=== PATIENT | male | born 1950 | race Caucasian/White ===

== ENCOUNTER 2016-07-15 10:50 | Outpatient (CLI) | payer OTHER | END 2016-07-15 10:51 | disposition home or self-care (01) | DX: E78.5 Hyperlipidemia, unspecified (principal); E11.9 Type 2 diabetes mellitus without complications; R97.20 Elevated prostate specific antigen [PSA]; I10 Essential (primary) hypertension; L30.9 Dermatitis, unspecified; Z79.899 Other long term (current) drug therapy; R94.5 Abnormal results of liver function studies ==

== ENCOUNTER 2016-07-25 07:25 | Outpatient (CLI) | payer OTHER | END 2016-07-25 07:26 | disposition home or self-care (01) | DX: K76.0 Fatty (change of) liver, not elsewhere classified (principal) ==

== ENCOUNTER 2016-08-05 14:53 | Outpatient (CLI) | payer OTHER | END 2016-08-05 14:54 | disposition home or self-care (01) | DX: R74.8 Abnormal levels of other serum enzymes (principal) ==

== ENCOUNTER 2016-08-18 09:56 | Emergency (ER) | payer OTHER ==
[2016-08-18] MEDS ORDERED: DEXAMETHASONE 10 MG/ML VIAL PO STA (10:34)
[2016-08-18] MEDS ORDERED: CHERRY SYRUP 10 ML UDC PO ONE (10:36)
[2016-08-18] MEDS ORDERED: DEXAMETHASONE 10 MG/ML VIAL ONE (10:36)
== END 2016-08-18 12:52 | disposition home or self-care (01) ==
DX: S83.8X1A Sprain of other specified parts of right knee, initial encounter (principal); X50.0XXA Overexertion from strenuous movement or load, initial encounter; Y92.019 Unspecified place in single-family (private) house as the place of occurrence of the external cause; M17.11 Unilateral primary osteoarthritis, right knee; M25.461 Effusion, right knee; I10 Essential (primary) hypertension; E78.00 Pure hypercholesterolemia, unspecified; J43.9 Emphysema, unspecified; K21.9 Gastro-esophageal reflux disease without esophagitis
CPT/HCPCS: 73564; 99283; A9270

== ENCOUNTER 2016-10-02 20:07 | Outpatient (CLI) | payer OTHER ==
[2016-10-02 19:51] LABS: BILIRUBIN,DIRECT 0.1 mg/dL (0.1-0.5); TOTAL PROTEIN 7.7 g/dL (6.7-8.2)
== END 2016-10-02 20:08 | disposition home or self-care (01) ==
LOC: LAB.WCP 20:07
PROVIDERS: ATTEND Family Medicine
DX: R74.8 Abnormal levels of other serum enzymes (principal)
CPT/HCPCS: 36415; 80076; 82150; 83690

== ENCOUNTER 2016-11-12 14:34 | Outpatient (CLI) | payer MEDICARE, OTHER ==
[2016-11-12 19:11] LABS: BILIRUBIN,DIRECT 0.2 mg/dL (0.1-0.5); BILIRUBIN,TOTAL 1.3 mg/dL (0.2-1.0); TOTAL PROTEIN 7.4 g/dL (6.7-8.2)
== END 2016-11-12 14:35 | disposition home or self-care (01) ==
LOC: LAB.WCP 14:34
PROVIDERS: ATTEND Family Medicine
DX: R74.8 Abnormal levels of other serum enzymes (principal)
CPT/HCPCS: 36415; 80076

== ENCOUNTER 2016-12-01 14:45 | Outpatient (CLI) | payer MEDICARE | END 2016-12-01 14:46 | disposition home or self-care (01) | LOC: LAB.R 14:45 | PROVIDERS: ATTEND Family Medicine | DX: Z01.818 Encounter for other preprocedural examination (principal) | CPT/HCPCS: 87640 ==

== ENCOUNTER 2017-01-23 08:00 | Outpatient (CLI) | payer MEDICARE ==
[2017-01-23 19:37] LABS: BASOPHILS % (AUTO) 0.5 %; EOSINOPHILS # (AUTO) 0.4 10^3/uL (0.0-0.7); EOSINOPHILS % (AUTO) 5.7 %; HCT - HEMATOCRIT 43.5 % (42.0-52.0); LYMPHOCYTES # (AUTO) 1.9 10^3/uL (1.5-3.5); MEAN CORPUSCULAR HEMOGLOBIN 32.5 pg (27.0-31.0); MEAN CORPUSCULAR HGB CONC 34.4 g/dL (32.0-36.0); MEAN CORPUSCULAR VOLUME 94.3 fL (80.0-94.0); MEAN PLATELET VOLUME 8.4 fL (7.4-11.4); MONOCYTES # (AUTO) 0.6 10^3/uL (0.0-1.0); MONOCYTES % (AUTO) 8.9 %; NEUTROPHILS # (AUTO) 3.9 10^3/uL (1.5-6.6); NEUTROPHILS % (AUTO) 56.9 %; RED BLOOD COUNT 4.61 10^6/uL (4.70-6.10); RED CELL DISTRIBUTION WIDTH 12.6 % (12.0-15.0); UNCORRECTED WHITE BLOOD COUNT 6.9 x10^3/uL; WHITE BLOOD COUNT 6.9 x10^3/uL (4.8-10.8)
[2017-01-23 19:51] LABS: ALBUMIN/GLOBULIN RATIO 1.2 (1.0-2.2); BUN - BLOOD UREA NITROGEN 23 mg/dL (6-20); CALCIUM 9.3 mg/dL (8.5-10.3); CARBON DIOXIDE - CO2 29 mmol/L (21-32); CHLORIDE 101 mmol/L (101-111); CHOL/HDL RATIO 5.8 (<5.0); CHOLESTEROL 185 mg/dL; CREATININE 0.9 mg/dL (0.6-1.2); GFR - MDRD 85 (>89); GLUCOSE 119 mg/dL (70-100); HDL CHOLESTEROL 32 mg/dL; POTASSIUM 3.2 mmol/L (3.5-5.0); SODIUM 137 mmol/L (135-145); TOTAL PROTEIN 7.6 g/dL (6.7-8.2); TRIGLYCERIDES 504 mg/dL
[2017-01-23 20:31] LABS: HEMOGLOBIN A1C 0.74 g/dL
[2017-01-23 20:43] LABS: LDL CHOLESTEROL,DIRECT 100 mg/dL
== END 2017-01-23 08:01 | disposition home or self-care (01) ==
LOC: LAB.WCP 08:00
PROVIDERS: ATTEND Family Medicine
DX: I10 Essential (primary) hypertension (principal); E78.5 Hyperlipidemia, unspecified; E11.9 Type 2 diabetes mellitus without complications
CPT/HCPCS: 36415; 80053; 80061; 82043; 83036; 85025

== ENCOUNTER 2017-02-09 10:54 | Outpatient (CLI) | payer MEDICARE ==
[2017-02-09 11:21] LABS: BASOPHILS % (AUTO) 0.5 %; EOSINOPHILS # (AUTO) 0.3 10^3/uL (0.0-0.7); EOSINOPHILS % (AUTO) 4.1 %; HGB - HEMOGLOBIN 14.7 g/dL (14.0-18.0); LYMPHOCYTES # (AUTO) 1.6 10^3/uL (1.5-3.5); LYMPHOCYTES % (AUTO) 26.3 %; MEAN CORPUSCULAR HEMOGLOBIN 32.2 pg (27.0-31.0); MEAN CORPUSCULAR HGB CONC 35.1 g/dL (32.0-36.0); MEAN CORPUSCULAR VOLUME 91.9 fL (80.0-94.0); MEAN PLATELET VOLUME 7.3 fL (7.4-11.4); MONOCYTES # (AUTO) 0.6 10^3/uL (0.0-1.0); MONOCYTES % (AUTO) 9.2 %; NEUTROPHILS # (AUTO) 3.7 10^3/uL (1.5-6.6); NEUTROPHILS % (AUTO) 59.9 %; RED BLOOD COUNT 4.57 10^6/uL (4.70-6.10); RED CELL DISTRIBUTION WIDTH 12.5 % (12.0-15.0); UNCORRECTED WHITE BLOOD COUNT 6.2 x10^3/uL; WHITE BLOOD COUNT 6.2 x10^3/uL (4.8-10.8)
[2017-02-09 11:30] LABS: CALCIUM 9.3 mg/dL (8.5-10.3); CREATININE 0.8 mg/dL (0.6-1.2)
== END 2017-02-09 10:55 | disposition home or self-care (01) ==
LOC: LAB 10:54
PROVIDERS: ATTEND Nurse Anesthetist, Certified Registered
DX: Z01.812 Encounter for preprocedural laboratory examination (principal); Z79.899 Other long term (current) drug therapy
CPT/HCPCS: 36415; 80048; 85025; 86850; 86900; 86901

== ENCOUNTER 2017-02-10 06:08 | Inpatient (IN) | payer MEDICARE ==
[2017-02-10] MEDS ORDERED: ceFAZolin 2 GM/50 ML 2 GM/50 ML BAG IV ONE (06:39)
[2017-02-10] MEDS ORDERED: LACTATED RINGERS 1,000 ML IV ONE (07:06)
[2017-02-10] MEDS ORDERED: ROPIVACAINE 0.5% PF 20 ML AMPULE SUBQ ONE (08:19)
[2017-02-10] MEDS ORDERED: MORPHINE PF 5 MG/10 ML AMP SUBQ ONE (08:20)
[2017-02-10] MEDS ORDERED: KETOROLAC 15 MG/ML VIAL IM ONE (08:20)
[2017-02-10] MEDS ORDERED: EPINEPHrine 1 MG/ML AMP IVP ONE (08:21)
[2017-02-10] MEDS ORDERED: BUPIVACAINE 0.5% PF 30 ML VIAL SUBQ ONE (08:21)
--- NOTE | 2017-02-10 09:45 | OPERATIVE REPORT ---
Operative Report - General Admit Date: 02/10/17 Procedure Date: 02/10/17 Planned Procedure: Right TKA Pre-Op Diagnosis: DJD right knee Procedure Performed: Right TKA Post Op Diagnosis: same - Procedure Note Primary Surgeon: cristi Anesthesia Technique: General ET tube Estimated Blood Loss (mL): 30 Drain/Tube Type: Hemovac
[2017-02-10] MEDS ORDERED: ONDANSETRON 4 MG/2 ML VIAL IVP PRN (09:46)
[2017-02-10] MEDS ORDERED: PROCHLORPERAZINE 10 MG/2 ML VIAL IVP PRN (09:46)
[2017-02-10] MEDS ORDERED: oxyCOD/ACETAMIN 5 MG/325 MG TABLET PO PRN (09:46)
[2017-02-10] MEDS ORDERED: ACETAMINOPHEN 325 MG TABLET PO PRN (09:46)
[2017-02-10] MEDS ORDERED: BISACODYL 10 MG SUPP PR PRN (09:46)
[2017-02-10] MEDS: HYDROmorphone 1 MG/ML SYRINGE ONE ×2 (09:57→10:05)
[2017-02-10] MEDS ORDERED: ALBUTEROL NEB 2.5 MG/3 ML INH PRN (10:04)
[2017-02-10] MEDS ORDERED: fentaNYL 100 MCG/2 ML VIAL IVP ONE (10:10)
[2017-02-10] MEDS ORDERED: DEXAMETHASONE 4 MG/ML VIAL IVP ONE (10:10)
[2017-02-10] MEDS ORDERED: ONDANSETRON 4 MG/2 ML VIAL IVP ONE (10:10)
[2017-02-10] MEDS ORDERED: LIDOCAINE-MPF 2% 5 ML VIAL IM ONE (10:10)
[2017-02-10] MEDS ORDERED: TRANEXAMIC ACID 1,000 MG/10 ML VIAL IV ONE (10:10)
[2017-02-10] MEDS ORDERED: MORPHINE PF 5 MG/10 ML AMP EP ONE (10:10)
[2017-02-10] MEDS ORDERED: ceFAZolin 2 GM/50 ML BAG IV ONE (10:10)
[2017-02-10] MEDS ORDERED: KETOROLAC 30 MG/ML VIAL IVP ONE (10:10)
[2017-02-10] MEDS ORDERED: METOCLOPRAMIDE 10 MG/2 ML VIAL IVP ONE (10:10)
[2017-02-10] MEDS ORDERED: PROPOFOL 200 MG/20 ML VIAL IVP ONE (10:10)
[2017-02-10] MEDS ORDERED: ACETAMINOPHEN 1,000 MG/100 ML 100 ML IV ONE (10:10)
[2017-02-10] MEDS ORDERED: HYDROmorphone 1 MG/ML SYRINGE ONE (10:16)
--- NOTE | 2017-02-10 10:50 | XRAY Report ---
TWO-VIEW RIGHT KNEE: 02/10/2017 CLINICAL INDICATION: Post-op. FINDINGS: Frontal and lateral views of the right knee are compared to previous films of 08/18/2016. There is a right knee replacement in place. Suprapatellar drain and subcutaneous gas are noted. Th ere is no evidence of fracture or hardware complication. IMPRESSION: EXPECTED POSTOPERATIVE APPEARANCE OF RIGHT KNEE REPLACEMENT. JOB #: [id number] EXT JOB #:[id number]
[2017-02-10] MEDS: SODIUM CHLORIDE 0.45% 1,000 ML IV SCH ×2 (11:40→21:44)
[2017-02-10] MEDS: ACETAMINOPHEN 1,000 MG/100 ML 100 ML IV PRN (11:46)
[2017-02-10] MEDS: oxyCOD/ACETAMIN 5 MG/325 MG TABLET PO PRN ×3 (11:46→21:45)
[2017-02-10] MEDS: SODIUM CHLORIDE FLUSH 0.9% 10 ML SYRINGE IVP SCH ×2 (13:30→21:46)
[2017-02-10] MEDS: ceFAZolin 2 GM/50 ML 2 GM/50 ML BAG IV SCH ×2 (13:30→21:45)
[2017-02-10] MEDS: ASPIRIN 325 MG TABLET PO SCH (16:03)
--- NOTE | 2017-02-10 16:34 | OPERATIVE REPORT ---
DATE OF SURGERY: 02/10/2017 00:00:00 PREOPERATIVE DIAGNOSIS: Right knee osteoarthritis. POSTOPERATIVE DIAGNOSIS: Right knee osteoarthritis. NAME OF PROCEDURE: Right total knee replacement arthroplasty. SURGEON: Shari Corrales MD ANESTHESIA: General. INDICATIONS FOR SURGERY: The patient is a 66-year-old male with progressive osteoarthritis of his rig ht knee that is severe. The patient has reached the point of ongoing aching pain and severe functiona l limitations. The patient has had a prior left total knee arthroplasty and has done well, and desire s a right knee replacement at this time. FINDINGS AT SURGERY: The patient's knee had a large effusion. He had prominent osteophytes, and he duque d hypertrophy of the synovial lining. He had loose bodies and prominent osteophytes posteriorly. His anterior cruciate ligament was absent. The degree of wear was quite severe in the articular cartilage throughout his knee, tricompartmental. DESCRIPTION OF OPERATIVE PROCEDURE: The patient was taken to the operating room. He was given a gener al anesthetic in the supine position. A tourniquet was placed on his thigh, and his knee and leg were sterilely prepped and draped in the standard fashion. His knee was approached under tourniquet contr ol with a curved incision through skin and subcutaneous tissue down to the common extensor mechanism, where a medial parapatellar incision was made. The patella was able to be everted and dislocated lat erally and the knee flexed, allowing exposure of osteophytes which were resected using an osteotome a nd mallet, and a rongeur. A central medullary hole was made in the femur and the distal cutting block applied to the femur for resection distally. This was accomplished, taking an extra 2 mm because of the patient's flexion contracture. The femur sizing was then accomplished, sizing to a size 10 Person a implant of standard size. The 4-in-1 cutting block was applied to the femur. The cuts were made, an d a bone plug was placed in the central hole. The tibia was then exposed with retraction, and the ext ernal guide was applied to allow for resection of the proximal tibia, referencing intact cartilage on the weightbearing side. When this cut was completed, the sizing of the tibia was a size F, and the t ibial baseplate was applied to allow drilling and stem broaching, with trial reduction to follow. The trial reduction was excellent, but it did require a larger size poly than was anticipated, utilizing an 18 mm size poly for stability. This was stable through a full range of motion. The patella was re sected from 25 mm down to 16, and replaced with a medialized size 35 patella. The trial components we re removed, and the cement was prepared and the implants opened. The sequence of cementing was to kevin ent in the tibial tray, size F, followed by cementing in the femoral component, a size 10, and the pa tella, size 35. A trial insert was placed, size 18, and the knee extended to allow cement hardening a fter all excess cement had been removed. When the cement had hardened, an 18 mm thick poly with media l congruency was re-inserted and was the acceptable implant into place. It was selected, placed into the patient, and locked into position. The knee was flushed and irrigated. A Hemovac drain was placed . Closure was with FiberWire closure of the medial retinaculum, a layered Vicryl closure of the subcu taneous tissue, and Monocryl closure of the skin, with sterile dressings applied and the drain anchor ed. The patient was taken to the recovery room in stable condition. ESTIMATED BLOOD LOSS: Less than 35 mL. COMPLICATIONS: None. SPONGE AND NEEDLE COUNTS: Correct. JOB #: [id number] EXT JOB #:[id number]
[2017-02-10] MEDS: SENNA 8.6 MG TABLET PO PRN (18:21)
[2017-02-10] MEDS: LISINOPRIL 20 MG TABLET PO SCH (21:45)
[2017-02-11] MEDS: oxyCOD/ACETAMIN 5 MG/325 MG TABLET PO PRN ×5 (00:42→20:56)
[2017-02-11] MEDS: SODIUM CHLORIDE FLUSH 0.9% 10 ML SYRINGE IVP SCH ×3 (02:31→20:54)
[2017-02-11 05:58] LABS: HCT - HEMATOCRIT 37.8 % (42.0-52.0); MEAN CORPUSCULAR HEMOGLOBIN 32.1 pg (27.0-31.0); MEAN CORPUSCULAR HGB CONC 34.4 g/dL (32.0-36.0); MEAN CORPUSCULAR VOLUME 93.3 fL (80.0-94.0); MEAN PLATELET VOLUME 7.6 fL (7.4-11.4); RED BLOOD COUNT 4.05 10^6/uL (4.70-6.10); RED CELL DISTRIBUTION WIDTH 12.3 % (12.0-15.0); WHITE BLOOD COUNT 11.5 x10^3/uL (4.8-10.8)
[2017-02-11 06:07] LABS: CALCIUM 8.6 mg/dL (8.5-10.3); CREATININE 0.8 mg/dL (0.6-1.2); POTASSIUM 3.1 mmol/L (3.5-5.0)
[2017-02-11] MEDS: PANTOPRAZOLE 40 MG TABLET PO SCH (06:10)
--- NOTE | 2017-02-11 07:13 | PROVIDER PROGRESS NOTE ---
Subjective - General Admit Date: 02/10/17 Procedure Date: 02/10/17 Post Op Days: 1 Procedure Performed: Right Total Knee Arthroplasty - Review of Systems Wound/Incisions: positive: Healing well, Dressing dry and intact General: positive: Fatigue Musculoskeletal: positive: Joint pain Objective - Patient Data Reviewed Vital Signs: Yes Vital Signs: Vital Signs x48h Temp Pulse Resp BP Pulse Ox 02/11/17 06:11 37.3 C 02/11/17 04:00 37.5 C 70 14 129/66 97 02/11/17 00:00 36.9 C 72 14 129/66 95 Weight: Weight 02/09/17 02/10/17 02/11/17 23:59 23:59 23:59 Weight (kg) 100.5 kg Intake & Output: Intake and Output Totals x24h 02/09/17 02/10/17 02/11/17 23:59 23:59 23:59 Intake Total 2400 1316.667 Output Total 450 15 Balance 1950 1301.667 - Lab Results Lab Results: 02/11/17 05:36 02/11/17 05:36 Other Lab Results: Lab Results x24hrs 02/11/17 02/11/17 02/10/17 Range/Units 05:36 05:36 10:21 WBC 11.5 H (4.8-10.8) x10^3/uL RBC 4.05 L (4.70-6.10) 10^6/uL Hgb 13.0 L (14.0-18.0) g/dL Hct 37.8 L (42.0-52.0) % MCV 93.3 (80.0-94.0) fL MCH 32.1 H (27.0-31.0) pg MCHC 34.4 (32.0-36.0) g/dL RDW 12.3 (12.0-15.0) % Plt Count 245 (130-450) 10^3/uL MPV 7.6 (7.4-11.4) fL Sodium 135 (135-145) mmol/L Potassium 3.1 L (3.5-5.0) mmol/L Chloride 99 L (101-111) mmol/L Carbon Dioxide 25 (21-32) mmol/L Anion Gap 11.0 (6-13) BUN 19 (6-20) mg/dL Creatinine 0.8 (0.6-1.2) mg/dL Estimated GFR (MDRD) 97 (>89) Glucose 140 H (70-100) mg/dL POC Whole Bld Glucose 183 H (70 - 100) mg/dL Calcium 8.6 (8.5-10.3) mg/dL - Imaging Results Radiology Imaging: positive: EMP read indepedently - Current Medications Current Medications: Current Medications Generic Name Dose Route Start Last Admin Trade Name Freq PRN Reason Stop Dose Admin Aspirin 325 mg 02/10/17 17:00 02/10/17 16:03 Nir PO 325 mg BIDWM PEGGY Administration Acetaminophen 100 mls @ 400 mls/hr 02/10/17 09:46 02/10/17 12:10 Ofirmev IV Infused Q6HR PRN Infusion PAIN Sodium Chloride 1,000 mls @ 100 mls/hr 02/10/17 10:00 02/11/17 05:54 Normal Saline 0.45% IV 100 mls/hr .Q10H PEGGY Infusion Lisinopril 20 mg 02/10/17 21:00 02/10/17 21:45 Zestril PO 20 mg BID PEGGY Administration Oxycodone/Acetaminophen 2 tab 02/10/17 16:37 02/11/17 05:32 Percocet 5 Mg/325 Mg PO 2 tab Q4H PRN Administration PAIN Pantoprazole Sodium 40 mg 02/11/17 07:00 02/11/17 06:10 Protonix PO 40 mg QDAC PEGGY Administration Senna 17.2 mg 02/10/17 09:46 02/10/17 18:21 Senokot PO 17.2 mg Q12H PRN Administration Constipation Sodium Chloride 10 ml 02/10/17 14:00 02/11/17 02:31 Normal Saline Flush 0.9% IVP Not Given Q8HR PEGGY - Physical Exam Wound/Incisions: positive: Dressing dry and intact General Appearance: positive: No acute distress Skin: positive: Warm, Dry Neurologic/Psychiatric: positive: Motor nml, Sensation nml, Mood/affect nml Impression/Plan - Problem List Problem List: POD #1 Pt is fairly comfortable. Will require some IV meds. Plan further PT.
[2017-02-11] MEDS: SODIUM CHLORIDE 0.45% 1,000 ML IV SCH ×2 (08:23→16:33)
[2017-02-11] MEDS: FLUoxetine 10 MG CAPSULE PO SCH (08:44)
[2017-02-11] MEDS: ASPIRIN 325 MG TABLET PO SCH ×2 (08:44→16:47)
[2017-02-11] MEDS: LISINOPRIL 20 MG TABLET PO SCH ×2 (08:44→20:55)
[2017-02-11] MEDS: CHLORTHALIDONE 25 MG TABLET PO SCH (08:44)
[2017-02-11] MEDS: SENNA 8.6 MG TABLET PO PRN (10:40)
[2017-02-11] MEDS: ACETAMINOPHEN 1,000 MG/100 ML 100 ML IV PRN (10:46)
[2017-02-11] MEDS: HYDROmorphone 1 MG/ML SYRINGE IVP PRN ×4 (14:02→23:59)
[2017-02-11] MEDS: POLYETHYLENE GLYCOL 3350 17 GM PACKET PO SCH (20:52)
[2017-02-12] MEDS: SENNA 8.6 MG TABLET PO PRN ×2 (00:13→21:20)
[2017-02-12] MEDS: oxyCOD/ACETAMIN 5 MG/325 MG TABLET PO PRN ×5 (01:33→21:19)
[2017-02-12] MEDS: SODIUM CHLORIDE FLUSH 0.9% 10 ML SYRINGE IVP SCH ×3 (06:14→16:26)
[2017-02-12] MEDS: PANTOPRAZOLE 40 MG TABLET PO SCH (06:14)
[2017-02-12] MEDS: SODIUM CHLORIDE FLUSH 0.9% 10 ML SYRINGE IVP PRN ×2 (06:44)
[2017-02-12] MEDS: HYDROmorphone 1 MG/ML SYRINGE IVP PRN ×3 (06:44→21:19)
--- NOTE | 2017-02-12 07:20 | PROVIDER PROGRESS NOTE ---
Subjective - General Admit Date: 02/10/17 Procedure Date: 02/10/17 Post Op Days: 2 Procedure Performed: Right Total Knee Arthroplasty - Review of Systems Wound/Incisions: positive: Dressing dry and intact General: positive: Fatigue Musculoskeletal: positive: Joint pain Objective - Patient Data Reviewed Vital Signs: Yes Vital Signs: Vital Signs x48h Temp Pulse Resp BP Pulse Ox 02/12/17 06:01 36.9 C 63 18 120/63 94 02/12/17 00:01 37.1 C 68 18 116/65 94 Weight: Weight 02/10/17 02/11/17 02/12/17 23:59 23:59 23:59 Weight (kg) 100.5 kg Intake & Output: Intake and Output Totals x24h 02/10/17 02/11/17 02/12/17 23:59 23:59 23:59 Intake Total 2400 3711.667 500.003 Output Total 450 25 Balance 1950 3686.667 500.003 - Lab Results Lab Results: 02/11/17 05:36 02/11/17 05:36 - Current Medications Current Medications: Current Medications Generic Name Dose Route Start Last Admin Trade Name Freq PRN Reason Stop Dose Admin Aspirin 325 mg 02/10/17 17:00 02/11/17 16:47 Nir PO 325 mg BIDWM PEGGY Administration Chlorthalidone 25 mg 02/11/17 09:00 02/11/17 08:44 Chlorthalidone PO 25 mg DAILY PEGGY Administration Fluoxetine HCl 30 mg 02/11/17 09:00 02/11/17 08:44 Prozac PO 30 mg DAILY PEGGY Administration Hydromorphone HCl 1 mg 02/11/17 13:00 02/12/17 06:44 Dilaudid Inj Syringe IVP 1 mg Q2H PRN Administration PAIN Acetaminophen 100 mls @ 400 mls/hr 02/10/17 09:46 02/11/17 11:05 Ofirmev IV Infused Q6HR PRN Infusion PAIN Lisinopril 20 mg 02/10/17 21:00 02/11/17 20:55 Zestril PO 20 mg BID PEGGY Administration Oxycodone/Acetaminophen 2 tab 02/10/17 16:37 02/12/17 06:14 Percocet 5 Mg/325 Mg PO 2 tab Q4H PRN Administration PAIN Pantoprazole Sodium 40 mg 02/11/17 07:00 02/12/17 06:14 Protonix PO 40 mg QDAC PEGGY Administration Polyethylene Glycol 17 gm 02/11/17 21:00 02/11/17 20:52 Miralax PO 17 gm DAILY PEGGY Administration Senna 17.2 mg 02/10/17 09:46 02/12/17 00:13 Senokot PO 17.2 mg Q12H PRN Administration Constipation Sodium Chloride 10 ml 02/10/17 14:00 02/12/17 06:14 Normal Saline Flush 0.9% IVP 10 ml Q8HR PEGGY Administration Sodium Chloride 10 ml 02/10/17 09:46 02/12/17 06:44 Normal Saline Flush 0.9% IVP 10 ml PRN PRN Administration NEEDED PER PROVIDER ORDERS
[2017-02-12] MEDS: FLUoxetine 10 MG CAPSULE PO SCH (08:39)
[2017-02-12] MEDS: CHLORTHALIDONE 25 MG TABLET PO SCH (08:40)
[2017-02-12] MEDS: POLYETHYLENE GLYCOL 3350 17 GM PACKET PO SCH (08:40)
[2017-02-12] MEDS: ASPIRIN 325 MG TABLET PO SCH ×2 (08:40→16:25)
[2017-02-12] MEDS: LISINOPRIL 20 MG TABLET PO SCH ×2 (08:40→21:19)
[2017-02-13] MEDS: oxyCOD/ACETAMIN 5 MG/325 MG TABLET PO PRN ×3 (01:35→12:18)
[2017-02-13] MEDS: SODIUM CHLORIDE FLUSH 0.9% 10 ML SYRINGE IVP PRN (01:45)
[2017-02-13] MEDS: HYDROmorphone 1 MG/ML SYRINGE IVP PRN (01:45)
[2017-02-13] MEDS: SODIUM CHLORIDE FLUSH 0.9% 10 ML SYRINGE IVP SCH (06:04)
[2017-02-13] MEDS: PANTOPRAZOLE 40 MG TABLET PO SCH (06:04)
[2017-02-13] MEDS: CHLORTHALIDONE 25 MG TABLET PO SCH (09:20)
[2017-02-13] MEDS: ASPIRIN 325 MG TABLET PO SCH (09:20)
[2017-02-13] MEDS: FLUoxetine 10 MG CAPSULE PO SCH (09:20)
[2017-02-13] MEDS: LISINOPRIL 20 MG TABLET PO SCH (09:20)
[2017-02-13] MEDS: POLYETHYLENE GLYCOL 3350 17 GM PACKET PO SCH (09:21)
--- NOTE | 2017-02-13 10:32 | Discharge Plan ---
Discharge Plan Disposition: 01 Home, Self Care Condition: Good Prescriptions: Aspirin [Nir] 325 mg PO BIDWM #60 tablet oxyCODONE/ACET 5/325 [Percocet 5 mg/325 mg] 1 tab PO Q4H PRN #30 tablet PRN Reason: Pain Polyethylene Glycol 3350 [Miralax] 17 gm PO DAILY PRN #30 packet PRN Reason: Constipation Diet: Regular Activity Restrictions: Wt Bearing as Tolerated Shower Restrictions: Yes (cover knee dressing and keep dry) Driving Restrictions: Yes (no drive) Assistance Devices: Walker Weight Bearing: Full Weight Follow-Up Care: Outpatient Rehab - PT No Smoking: If you smoke, Please STOP! Call for help. Follow-up with: Tre Gasca MD [Primary Care Provider] - Shari Corrales MD [Provider Admit Priv/Credential] -
[2017-02-13 13:04] VITALS: BP 149/60
== END 2017-02-13 13:35 | disposition home or self-care (01) | DRG 470 ==
LOC: ICU 06:08 → MS3 02-11 14:49
PROVIDERS: ADMIT Orthopaedic Surgery; ATTEND Orthopaedic Surgery
PROC: 0SRC069 Replacement of Right Knee Joint with Oxidized Zirconium on Polyethylene Synthetic Substitute, Cemented, Open Approach (ICD-10-PCS; principal; 2017-02-10 07:30)
DX: M17.11 Unilateral primary osteoarthritis, right knee (principal); F32.9 Major depressive disorder, single episode, unspecified; I10 Essential (primary) hypertension; J43.9 Emphysema, unspecified; K21.9 Gastro-esophageal reflux disease without esophagitis; E11.9 Type 2 diabetes mellitus without complications; E78.5 Hyperlipidemia, unspecified; G47.30 Sleep apnea, unspecified; Z96.652 Presence of left artificial knee joint; Z79.899 Other long term (current) drug therapy
CPT/HCPCS: 36415; 80048; 87640

== ENCOUNTER 2017-05-29 08:00 | Outpatient (CLI) | payer MEDICARE ==
[2017-05-29 19:29] LABS: ALBUMIN 4.3 g/dL (3.2-5.5); ALBUMIN/GLOBULIN RATIO 1.3 (1.0-2.2); ALKALINE PHOSPHATASE 87 IU/L (42-121); ALT ALANINE AMINOTRANSFERASE 61 IU/L (10-60); AST ASPARTATE AMINOTRANSFERASE 43 IU/L (10-42); BILIRUBIN,TOTAL 0.9 mg/dL (0.2-1.0); BUN - BLOOD UREA NITROGEN 18 mg/dL (6-20); CALCIUM 8.9 mg/dL (8.5-10.3); CARBON DIOXIDE - CO2 29 mmol/L (21-32); CHLORIDE 98 mmol/L (101-111); CHOL/HDL RATIO 5.2 (<5.0); CHOLESTEROL 182 mg/dL; CREATININE 0.9 mg/dL (0.6-1.2); GFR - MDRD 85 (>89); GLUCOSE 122 mg/dL (70-100); HDL CHOLESTEROL 35 mg/dL; LDL CHOLESTEROL,CALCULATED 93 mg/dL; LDL/HDL RATIO 2.7 (<3.6); SODIUM 135 mmol/L (135-145); TOTAL PROTEIN 7.7 g/dL (6.7-8.2); VLDL CHOLESTEROL 54 mg/dL
[2017-05-29 19:43] LABS: HB2 TOTAL 16.1 g/dL; HEMOGLOBIN A1C 0.77 g/dL; HEMOGLOBIN A1C % 6.5 % (4.6-6.2)
== END 2017-05-29 08:01 | disposition home or self-care (01) ==
LOC: LAB.WCP 08:00
PROVIDERS: ATTEND Family Medicine
DX: E11.9 Type 2 diabetes mellitus without complications (principal); I10 Essential (primary) hypertension; R94.5 Abnormal results of liver function studies
CPT/HCPCS: 36415; 80053; 80061; 83036; 83721

== ENCOUNTER 2017-09-07 08:00 | Outpatient (CLI) | payer MEDICARE ==
[2017-09-07 20:13] LABS: ALBUMIN 3.9 g/dL (3.2-5.5); ALBUMIN/GLOBULIN RATIO 1.1 (1.0-2.2); ALKALINE PHOSPHATASE 78 IU/L (42-121); ALT ALANINE AMINOTRANSFERASE 70 IU/L (10-60); AST ASPARTATE AMINOTRANSFERASE 73 IU/L (10-42); BILIRUBIN,TOTAL 1.3 mg/dL (0.2-1.0); BUN - BLOOD UREA NITROGEN 17 mg/dL (6-20); CALCIUM 8.8 mg/dL (8.5-10.3); CARBON DIOXIDE - CO2 28 mmol/L (21-32); CHLORIDE 99 mmol/L (101-111); CHOL/HDL RATIO 5.7 (<5.0); CHOLESTEROL 182 mg/dL; CREATININE 0.8 mg/dL (0.6-1.2); GFR - MDRD 97 (>89); GLUCOSE 129 mg/dL (70-100); HDL CHOLESTEROL 32 mg/dL; LDL CHOLESTEROL,CALCULATED 71 mg/dL; LDL/HDL RATIO 2.2 (<3.6); SODIUM 136 mmol/L (135-145); TOTAL PROTEIN 7.4 g/dL (6.7-8.2); VLDL CHOLESTEROL 79 mg/dL
[2017-09-07 20:22] LABS: HB2 TOTAL 16.5 g/dL; HEMOGLOBIN A1C 0.75 g/dL; HEMOGLOBIN A1C % 6.3 % (4.6-6.2)
== END 2017-09-07 08:01 | disposition home or self-care (01) ==
LOC: LAB.WCP 08:00
PROVIDERS: ATTEND Family Medicine
DX: E78.5 Hyperlipidemia, unspecified (principal); E11.9 Type 2 diabetes mellitus without complications; I10 Essential (primary) hypertension; R94.5 Abnormal results of liver function studies
CPT/HCPCS: 36415; 80053; 80061; 83036; 83721

== ENCOUNTER 2017-10-15 11:08 | Outpatient (CLI) | payer MEDICARE ==
[2017-10-15 19:09] LABS: ALBUMIN 3.8 g/dL (3.2-5.5); BILIRUBIN,DIRECT 0.1 mg/dL (0.1-0.5); BILIRUBIN,TOTAL 0.8 mg/dL (0.2-1.0); TOTAL PROTEIN 7.5 g/dL (6.7-8.2)
== END 2017-10-15 11:09 | disposition home or self-care (01) ==
LOC: LAB.WCP 11:08
PROVIDERS: ATTEND Family Medicine
DX: R79.89 Other specified abnormal findings of blood chemistry (principal)
CPT/HCPCS: 36415; 80076

== ENCOUNTER 2018-01-05 11:59 | Outpatient (CLI) | payer MEDICARE ==
[2018-01-05 19:23] LABS: ALBUMIN 3.8 g/dL (3.2-5.5); ALBUMIN/GLOBULIN RATIO 1.1 (1.0-2.2); BILIRUBIN,TOTAL 0.9 mg/dL (0.2-1.0); CALCIUM 8.8 mg/dL (8.5-10.3); CREATININE 0.8 mg/dL (0.6-1.2); TOTAL PROTEIN 7.4 g/dL (6.7-8.2)
[2018-01-05 20:20] LABS: HB2 TOTAL 15.4 g/dL; HEMOGLOBIN A1C 0.78 g/dL; HEMOGLOBIN A1C % 6.8 % (4.6-6.2)
== END 2018-01-05 12:00 ==
LOC: LAB.WCP 11:59
PROVIDERS: ATTEND Family Medicine
DX: E78.5 Hyperlipidemia, unspecified (principal); I10 Essential (primary) hypertension; E11.9 Type 2 diabetes mellitus without complications; R94.5 Abnormal results of liver function studies
CPT/HCPCS: 36415; 80053; 83036

== ENCOUNTER 2018-04-07 08:00 | Outpatient (CLI) | payer MEDICARE ==
[2018-04-07 12:43] LABS: HB2 TOTAL 16.7 g/dL; HEMOGLOBIN A1C 0.81 g/dL; HEMOGLOBIN A1C % 6.6 % (4.6-6.2)
[2018-04-07 12:48] LABS: ALBUMIN 4.1 g/dL (3.2-5.5); BILIRUBIN,DIRECT 0.2 mg/dL (0.1-0.5); BILIRUBIN,TOTAL 0.9 mg/dL (0.2-1.0); TOTAL PROTEIN 7.9 g/dL (6.7-8.2)
== END 2018-04-07 23:59 | disposition home or self-care (01) ==
LOC: LAB.WCP 08:00
PROVIDERS: ATTEND Family Medicine
DX: E11.9 Type 2 diabetes mellitus without complications (principal); I10 Essential (primary) hypertension; R94.5 Abnormal results of liver function studies
CPT/HCPCS: 36415; 80076; 83036

== ENCOUNTER 2018-06-04 08:00 | Outpatient (CLI) | payer MEDICARE ==
[2018-06-04 13:59] LABS: ALBUMIN/GLOBULIN RATIO 1.1 (1.0-2.2); BILIRUBIN,TOTAL 0.8 mg/dL (0.2-1.0); CALCIUM 9.1 mg/dL (8.5-10.3); CREATININE 0.8 mg/dL (0.6-1.2); TOTAL PROTEIN 7.5 g/dL (6.7-8.2)
[2018-06-04 17:44] LABS: HB2 TOTAL 16.3 g/dL; HEMOGLOBIN A1C 0.79 g/dL; HEMOGLOBIN A1C % 6.6 % (4.6-6.2)
== END 2018-06-04 23:59 | disposition home or self-care (01) ==
LOC: LAB.WCP 08:00
PROVIDERS: ATTEND Family Medicine
DX: I10 Essential (primary) hypertension (principal); K76.0 Fatty (change of) liver, not elsewhere classified; E11.9 Type 2 diabetes mellitus without complications; F32.9 Major depressive disorder, single episode, unspecified
CPT/HCPCS: 36415; 80053; 83036

== ENCOUNTER 2018-10-07 08:00 | Outpatient (CLI) | payer MEDICARE ==
[2018-10-07 19:09] LABS: ALBUMIN 4.3 g/dL (3.2-5.5); BILIRUBIN,DIRECT 0.2 mg/dL (0.1-0.5); BILIRUBIN,TOTAL 1.1 mg/dL (0.2-1.0); TOTAL PROTEIN 7.8 g/dL (6.7-8.2)
== END 2018-10-07 23:59 | disposition home or self-care (01) ==
LOC: LAB.WCP 08:00
PROVIDERS: ATTEND Student in an Organized Health Care Education/Training Program
DX: K76.0 Fatty (change of) liver, not elsewhere classified (principal)
CPT/HCPCS: 36415; 80076

== ENCOUNTER 2018-10-18 11:34 | Outpatient (CLI) | payer MEDICARE ==
[2018-10-18 19:13] LABS: ALBUMIN 4.2 g/dL (3.2-5.5); BILIRUBIN,DIRECT 0.2 mg/dL (0.1-0.5); BILIRUBIN,TOTAL 1.3 mg/dL (0.2-1.0); TOTAL PROTEIN 7.8 g/dL (6.7-8.2)
[2018-10-20 13:07] LABS: ANA SCREEN NEGATIVE (NEGATIVE)
[2018-10-20 23:42] LABS: SMOOTH MUSCLE IGG AB 35 U
== END 2018-10-18 11:35 | disposition home or self-care (01) ==
LOC: LAB.WCP 11:34
PROVIDERS: ATTEND Student in an Organized Health Care Education/Training Program
DX: R74.8 Abnormal levels of other serum enzymes (principal)
CPT/HCPCS: 36415; 80076; 81599; 82390; 82728; 83516; 86038; 86317; 86704; 86708

== ENCOUNTER 2019-01-13 08:00 | Outpatient (CLI) | payer MEDICARE ==
[2019-01-13 19:11] LABS: BILIRUBIN,DIRECT 0.2 mg/dL (0.1-0.5); TOTAL PROTEIN 7.4 g/dL (6.7-8.2)
== END 2019-01-13 23:59 | disposition home or self-care (01) ==
LOC: LAB.WCP 08:00
PROVIDERS: ATTEND Student in an Organized Health Care Education/Training Program
DX: K76.0 Fatty (change of) liver, not elsewhere classified (principal); R74.8 Abnormal levels of other serum enzymes
CPT/HCPCS: 36415; 80076

== ENCOUNTER 2019-05-15 19:31 | Emergency (ER) | payer MEDICARE ==
[2019-05-15 19:41] VITALS: BP 159/90
--- NOTE | 2019-05-15 19:56 | ED Physician Documentation ---
History of Present Illness - Stated complaint Stated Complaint: LT MIDDLE FINGER LAC - Chief complaint Chief Complaint: Laceration - History obtained from History obtained from: Patient - History of Present Illness Timing: How many hours ago (6) Pain level max: 2 Pain level now: 1 - Additonal information Additional information: 68-year-old male states that he accidentally cut the tip of his left middle finger with a knife while cutting cooked chicken earlier today. States it stops bleeding for a while, but then will recur and started to bleed again. He contacted the advice nurse line who recommended he come here. He is not on blood thinners. No numbness or tingling. No focal weakness.Better with pre ssure. Worse with movement. Patient is right-handed. Tetanus is up-to-date Review of Systems Neurologic: denies: Focal weakness PD PAST MEDICAL HISTORY - Past Medical History Past Medical History: Yes Cardiovascular: Hypertension, High cholesterol Respiratory: Emphysema, Other Endocrine/Autoimmune: None GI: GERD, Other : None HEENT: Other Psych: Depression Musculoskeletal: Osteoarthritis Derm: Eczema - Past Surgical History Past Surgical History: Yes General: Colonoscopy Ortho: Knee replacement, Arthroscopic surgery - Present Medications Home Medications: Ambulatory Orders Medication Instructions Recorded Confirmed Chlorthalidone 25 mg PO DAILY 02/19/16 05/15/19 Fluoxetine HCl 30 mg PO DAILY 02/19/16 02/10/17 Omeprazole [PriLOSEC] 20 mg PO QDAC 02/19/16 05/15/19 lisinopriL [Prinivil] 20 mg PO BID 02/19/16 05/15/19 Celecoxib [Celebrex] 200 mg PO DAILY 08/18/16 05/15/19 FLUoxetine [PROzac] 30 mg PO DAILY capsule 02/13/17 05/15/19 - Allergies Allergies/Adverse Reactions: Allergies Allergy/AdvReac Type Severity Reaction Status Date / Time cat dander Allergy Severe Respiratory Verified 05/15/19 19:38 - Social History Does the pt smoke?: No Smoking Status: Never smoker Does the pt drink ETOH?: Yes Does the pt have substance abuse?: No - POLST Patient has POLST: No PD ED PE NORMAL - Vitals Vital signs reviewed: Yes - General General: Alert and oriented X 3, No acute distress - HEENT HEENT: Moist mucous membranes - Derm Derm: Warm and dry - Extremities Extremities: Other (Small avulsion of the tip of the L middle finger. Not currently bleeding. NVI. 0.1x0.3cm) - Neuro Neuro: Alert and oriented X 3 Results - Vitals Vitals: Vital Signs - 24 hr 05/15/19 19:38 Temperature 36.7 C Heart Rate 71 Respiratory 18 Rate Blood Pressure 159/90 H O2 Saturation 97 Oxygen O2 Source Room air Procedures - Laceration (location) L middle fingertip Length in cm: 0.3 Wound type: Linear, Other (avulsion) Neurovascular status: Sensory intact, Motor intact, Vascular intact Tendon involvement: Tendon intact Wound Preparation: Irrigated copiously NS Skin layer closure: Dermabond Other: Patient tolerated well, No complications, Neurovascular intact, Tetanus UTD Complexity: Simple PD MEDICAL DECISION MAKING - ED course Complexity details: considered differential, d/w patient ED course: Tourniquet applied, Dermabond was then used to glue over the area. A Band-Aid was then applied. Hemostasis achieved and the tourniquet was removed. Tetanus is up-to-date. Warnings of infection and instructions on wound care given at bedside. Also counseled on how to minimize scarring. Patient counseled regarding signs and symptoms for which I believe and urgent re-evaluation would be necessary. Patient with good understanding of and agreement to plan and is comfortable going home at this time This document was made in part using voice recognition software. While efforts are made to proofread this document, sound alike and grammatical errors may occur. Departure - Departure Disposition: 01 Home, Self Care Clinical Impression: Fingertip avulsion Qualifiers: Encounter type: initial encounter Qualified Code(s): S61.209A - Unspecified open wound of unspecified finger without damage to nail, initial encounter Condition: Good Instructions: ED Laceration Amputation Finger Tip Open Tx Follow-Up: Rambo Castro MD [Primary Care Provider] - As Needed Comments: Keep the wound clean. Return if you worsen, especially for redness, swelling, or drainage from the wound. Discharge Date/Time: 05/15/19 20:12
== END 2019-05-15 20:12 | disposition home or self-care (01) ==
LOC: ED 19:31
DX: S61.213A Laceration without foreign body of left middle finger without damage to nail, initial encounter (principal); W26.0XXA Contact with knife, initial encounter; Y93.G1 Activity, food preparation and clean up; I10 Essential (primary) hypertension
CPT/HCPCS: 12001; 99282

== ENCOUNTER 2019-05-31 11:15 | Outpatient (CLI) | payer MEDICARE ==
--- NOTE | 2019-05-31 21:51 | XRAY Report ---
Reason: COPD Procedure Date: 05/31/2019 Accession Number: [id number] / [id number] Procedure: WCP - Chest 2 View X-Ray CPT Code: 68129 Final Report FULL RESULT: EXAM: CHEST RADIOGRAPHY EXAM DATE: 05/31/2019 11:15 AM. CLINICAL HISTORY: COPD. Chronic cough. COMPARISON: None. TECHNIQUE: PA x2, lateral views. FINDINGS: Lungs/Pleura: No focal opacities evident. No peribronchial cuffing or interstitial abnormality. No pleural effusion. No pneumothorax. Normal volumes. Mediastinum: Heart and mediastinal contours are unremarkable. Other: None. IMPRESSION: Normal 2-view chest radiography. [facility]
== END 2019-05-31 23:59 | disposition home or self-care (01) ==
LOC: DI.WCP 11:15
PROVIDERS: ATTEND Family Medicine
DX: J44.9 Chronic obstructive pulmonary disease, unspecified (principal)
CPT/HCPCS: 71046

== ENCOUNTER 2019-06-10 08:00 | Outpatient (CLI) | payer MEDICARE ==
[2019-06-10 12:48] LABS: BASOPHILS # (AUTO) 0.1 10^3/uL (0.0-0.1); EOSINOPHILS # (AUTO) 0.3 10^3/uL (0.0-0.7); EOSINOPHILS % (AUTO) 4.8 %; HGB - HEMOGLOBIN 14.4 g/dL (14.0-18.0); LYMPHOCYTES # (AUTO) 1.5 10^3/uL (1.5-3.5); MEAN CORPUSCULAR HEMOGLOBIN 31.1 pg (27.0-31.0); MEAN CORPUSCULAR HGB CONC 33.8 g/dL (32.0-36.0); MEAN PLATELET VOLUME 10.1 fL (7.4-11.4); MONOCYTES # (AUTO) 0.5 10^3/uL (0.0-1.0); MONOCYTES % (AUTO) 9.1 %; NEUTROPHILS # (AUTO) 2.9 10^3/uL (1.5-6.6); NEUTROPHILS % (AUTO) 55.5 %; PLT - PLATELET COUNT 247 10^3/uL (130-450); RED BLOOD COUNT 4.63 10^6/uL (4.70-6.10); RED CELL DISTRIBUTION WIDTH 12.3 % (12.0-15.0); WHITE BLOOD COUNT 5.2 x10^3/uL (4.8-10.8)
[2019-06-10 12:59] LABS: HB2 TOTAL 14.4 g/dL; HEMOGLOBIN A1C 0.91 g/dL; HEMOGLOBIN A1C % 7.9 % (4.6-6.2)
[2019-06-10 13:07] LABS: ALBUMIN 3.9 g/dL (3.2-5.5); ALBUMIN/GLOBULIN RATIO 1.1 (1.0-2.2); ALKALINE PHOSPHATASE 68 IU/L (42-121); ALT ALANINE AMINOTRANSFERASE 79 IU/L (10-60); AST ASPARTATE AMINOTRANSFERASE 57 IU/L (10-42); BILIRUBIN,TOTAL 1.2 mg/dL (0.2-1.0); BUN - BLOOD UREA NITROGEN 17 mg/dL (6-20); CALCIUM 8.7 mg/dL (8.5-10.3); CARBON DIOXIDE - CO2 27 mmol/L (21-32); CHLORIDE 95 mmol/L (101-111); CHOL/HDL RATIO 5.4 (<5.0); CHOLESTEROL 188 mg/dL; CREATININE 0.9 mg/dL (0.6-1.2); GFR - MDRD 84 (>89); GLUCOSE 168 mg/dL (70-100); HDL CHOLESTEROL 35 mg/dL; LDL CHOLESTEROL,CALCULATED 83 mg/dL; LDL/HDL RATIO 2.4 (<3.6); SODIUM 135 mmol/L (135-145); TOTAL PROTEIN 7.6 g/dL (6.7-8.2); VLDL CHOLESTEROL 70 mg/dL
[2019-06-10 13:10] LABS: MICROALBUM/CREATININE RATIO,UR 6.6 ug/mg (<30.0); MICROALBUMIN,URINE 1.3 mg/dL (0-300.0)
== END 2019-06-10 23:59 | disposition home or self-care (01) ==
LOC: LAB.WCP 08:00
PROVIDERS: ATTEND Family Medicine
DX: E78.5 Hyperlipidemia, unspecified (principal); I10 Essential (primary) hypertension; E11.9 Type 2 diabetes mellitus without complications; Z12.5 Encounter for screening for malignant neoplasm of prostate
CPT/HCPCS: 36415; 80053; 80061; 82043; 82570; 83036; 84443; 85025; G0103; 83721; 84153

== ENCOUNTER 2019-10-25 08:00 | Outpatient (CLI) | payer MEDICARE ==
[2019-10-25 12:06] LABS: ALBUMIN 4.1 g/dL (3.2-5.5); ALBUMIN/GLOBULIN RATIO 1.1 (1.0-2.2); BILIRUBIN,TOTAL 0.8 mg/dL (0.2-1.0); CREATININE 0.9 mg/dL (0.6-1.2)
[2019-10-25 12:10] LABS: CREATININE,URINE 319.1 mg/dL; MICROALBUM/CREATININE RATIO,UR 25.1 ug/mg (<30.0)
[2019-10-25 12:11] LABS: HEMOGLOBIN A1C 0.87 g/dL; HEMOGLOBIN A1C % 7.1 % (4.6-6.2)
== END 2019-10-25 23:59 | disposition home or self-care (01) ==
LOC: LAB.WCP 08:00
PROVIDERS: ATTEND Family Medicine
DX: I10 Essential (primary) hypertension (principal)
CPT/HCPCS: 36415; 80053; 82043; 82570; 83036

== ENCOUNTER 2020-04-26 10:53 | Outpatient (CLI) | payer MEDICARE ==
[2020-04-26 12:42] LABS: CALCIUM 9.3 mg/dL (8.5-10.3)
[2020-04-26 16:15] LABS: HEMOGLOBIN A1c% 7.8 % (4.27-6.07)
== END 2020-04-26 10:54 | disposition home or self-care (01) ==
LOC: LAB.N 10:53
PROVIDERS: ATTEND Family Medicine
DX: J44.9 Chronic obstructive pulmonary disease, unspecified (principal); E11.9 Type 2 diabetes mellitus without complications
CPT/HCPCS: 36415; 80048; 83036

== ENCOUNTER 2020-07-26 10:41 | Outpatient (CLI) | payer MEDICARE ==
[2020-07-26 18:24] LABS: BASOPHILS # (AUTO) 0.1 10^3/uL (0.0-0.1); BASOPHILS % (AUTO) 0.8 %; EOSINOPHILS # (AUTO) 0.3 10^3/uL (0.0-0.7); HCT - HEMATOCRIT 45.8 % (42.0-52.0); HGB - HEMOGLOBIN 14.9 g/dL (14.0-18.0); LYMPHOCYTES # (AUTO) 1.4 10^3/uL (1.5-3.5); MEAN CORPUSCULAR HEMOGLOBIN 30.5 pg (27.0-31.0); MEAN CORPUSCULAR HGB CONC 32.5 g/dL (32.0-36.0); MEAN CORPUSCULAR VOLUME 93.9 fL (80.0-94.0); MEAN PLATELET VOLUME 10.3 fL (7.4-11.4); MONOCYTES # (AUTO) 0.6 10^3/uL (0.0-1.0); MONOCYTES % (AUTO) 8.6 %; NEUTROPHILS # (AUTO) 4.1 10^3/uL (1.5-6.6); NEUTROPHILS % (AUTO) 63.3 %; PLT - PLATELET COUNT 276 10^3/uL (130-450); RED BLOOD COUNT 4.88 10^6/uL (4.70-6.10); RED CELL DISTRIBUTION WIDTH 12.7 % (12.0-15.0); WHITE BLOOD COUNT 6.4 x10^3/uL (4.8-10.8)
[2020-07-26 19:03] LABS: THYROID STIMULATING HORMONE 0.96 uIU/mL (0.34-5.60)
[2020-07-26 19:04] LABS: CREATININE,URINE 135.1 mg/dL; MICROALBUM/CREATININE RATIO,UR 14.1 ug/mg (<30.0); MICROALBUMIN,URINE 1.9 mg/dL (0-300.0)
[2020-07-26 19:06] LABS: ALBUMIN 4.1 g/dL (3.2-5.5); ALBUMIN/GLOBULIN RATIO 1.1 (1.0-2.2); ALKALINE PHOSPHATASE 104 IU/L (42-121); ALT ALANINE AMINOTRANSFERASE 31 IU/L (10-60); AST ASPARTATE AMINOTRANSFERASE 28 IU/L (10-42); BILIRUBIN,TOTAL 0.7 mg/dL (0.2-1.0); BUN - BLOOD UREA NITROGEN 19 mg/dL (6-20); CALCIUM 9.6 mg/dL (8.5-10.3); CARBON DIOXIDE - CO2 25 mmol/L (21-32); CHLORIDE 97 mmol/L (101-111); CHOL/HDL RATIO 4.4 (<5.0); CHOLESTEROL 155 mg/dL; CREATININE 0.9 mg/dL (0.6-1.2); GFR - MDRD 84 (>89); GLUCOSE 120 mg/dL (70-100); HDL CHOLESTEROL 35 mg/dL; LDL CHOLESTEROL,CALCULATED 90 mg/dL; LDL/HDL RATIO 2.6 (<3.6); POTASSIUM 3.6 mmol/L (3.5-5.0); SODIUM 137 mmol/L (135-145); TRIGLYCERIDES 152 mg/dL; VLDL CHOLESTEROL 30 mg/dL
[2020-07-26 20:07] LABS: ESTIMATED AVERAGE GLUCOSE 143 mg/dL (70-100); HEMOGLOBIN A1c% 6.6 % (4.27-6.07)
== END 2020-07-26 10:42 | disposition home or self-care (01) ==
LOC: LAB.N 10:41
PROVIDERS: ATTEND Family Medicine
DX: E11.9 Type 2 diabetes mellitus without complications (principal); J44.9 Chronic obstructive pulmonary disease, unspecified; K76.0 Fatty (change of) liver, not elsewhere classified; E78.5 Hyperlipidemia, unspecified; I10 Essential (primary) hypertension; Z79.899 Other long term (current) drug therapy
CPT/HCPCS: 36415; 80053; 80061; 82043; 82570; 83036; 83721; 84443; 85025

== ENCOUNTER 2020-08-28 11:00 | Emergency (ER) | payer MEDICARE ==
[2020-08-28] MEDS ORDERED: TETANUS/DIPHTHERIA/PERTUSSIS 0.5 ML SYRINGE IM ONE (11:18)
[2020-08-28] MEDS ORDERED: BUFFERED LIDOCAINE 10 ML SYRINGE IU ONE (12:17)
--- NOTE | 2020-08-28 12:51 | ED Physician Documentation ---
PD HPI UPPER EXT INJURY - Stated complaint Stated Complaint: L HAND LAC - Chief complaint Chief Complaint: Laceration - History obtained from History obtained from: Patient - Additonal information Additional information: Patient comes emergency department chief complaint of left middle finger laceration with a serrated knife. Patient states he was attempting to cut his strap with a serrated knife and the knife slipped through and struck his finger. Patient denies any limitation in range of motion. The injury happened just before coming here. Patient is in need of an update to his tetanus. No other injuries or complaints. Review of Systems Ten Systems: 10 systems reviewed and negative Constitutional: reports: Reviewed and negative Eyes: reports: Reviewed and negative Ears: reports: Reviewed and negative Nose: reports: Reviewed and negative Throat: reports: Reviewed and negative Cardiac: reports: Reviewed and negative Respiratory: reports: Reviewed and negative GI: reports: Reviewed and negative : reports: Reviewed and negative Skin: reports: Laceration (s) Musculoskeletal: reports: Reviewed and negative Neurologic: reports: Reviewed and negative Psychiatric: reports: Reviewed and negative Endocrine: reports: Reviewed and negative Immunocompromised: reports: Reviewed and negative PD PAST MEDICAL HISTORY - Past Medical History Past Medical History: Yes Cardiovascular: Hypertension, High cholesterol Respiratory: Emphysema, Other Neuro: None Endocrine/Autoimmune: None GI: GERD, Other : None HEENT: Other Psych: Depression Musculoskeletal: Osteoarthritis Derm: Eczema - Past Surgical History Past Surgical History: Yes General: Colonoscopy Ortho: Knee replacement, Arthroscopic surgery - Present Medications Home Medications: Ambulatory Orders Medication Instructions Recorded Confirmed Chlorthalidone 12.5 mg PO DAILY 02/19/16 08/28/20 Fluoxetine HCl 25 mg PO DAILY 02/19/16 08/28/20 Omeprazole [PriLOSEC] 20 mg PO QDAC 02/19/16 08/28/20 lisinopriL [Prinivil] 20 mg PO BID 02/19/16 08/28/20 Celecoxib [Celebrex] 200 mg PO DAILY 08/18/16 08/28/20 Atorvastatin [Lipitor] 20 mg ORAL DAILY 08/28/20 08/28/20 - Allergies Allergies/Adverse Reactions: Allergies Allergy/AdvReac Type Severity Reaction Status Date / Time cat dander Allergy Severe Respiratory Verified 08/28/20 11:10 - Social History Does the pt smoke?: No Smoking Status: Former smoker Does the pt drink ETOH?: Yes ETOH Use: Beer Does the pt have substance abuse?: No - Immunizations Immunizations are current?: No Immunizations: TDAP >10years/unknown - POLST Patient has POLST: No PD ED PE NORMAL - Vitals Vital signs reviewed: Yes - General General: Alert and oriented X 3, No acute distress - HEENT HEENT: Atraumatic, PERRL, EOMI, Moist mucous membranes - Neck Neck: Supple, no meningeal sign - Cardiac Cardiac: Strong equal pulses - Respiratory Respiratory: No respiratory distress - Derm Derm: Normal color, Warm and dry, No rash, Other (22 mm semicircular laceration over radial aspect of left middle finger middle phalanx. No foreign body. Bleeding controlled.) - Extremities Extremities: No deformity, Other (Full strength extension against resistance in left middle finger at both PIP and DIP joints.) - Neuro Neuro: Alert and oriented X 3, No motor deficit, No sensory deficit - Psych Psych: Normal mood, Normal affect Results - Vitals Vitals: Vital Signs - 24 hr 08/28/20 08/28/20 11:02 13:05 Temperature 36.8 C 37.0 C Heart Rate 66 60 Respiratory 16 16 Rate Blood Pressure 175/73 H 146/91 H O2 Saturation 98 96 Oxygen O2 Source Room air Procedures - Laceration (location) L middle finger Wound type: Curved Neurovascular status: Sensory intact, Motor intact, Vascular intact Tendon involvement: No: Tendon Injury Anesthesia: Lidocaine 1% Wound preparation: Hibiclens, Irrigated copiously NS, To the base. No: FB identified Skin layer closure: Nylon, Size #-0 - enter number (4.0), Sutures - enter # (5) Other: Patient tolerated well, No complications, Neurovascular intact, Dressing applied, Tetanus booster given PD MEDICAL DECISION MAKING - ED course Complexity details: considered differential, d/w patient ED course: Wound repaired as noted above. We have discussed wound care at home, as well as the need for suture removal in 7 days. We have discussed the usual indications for return. Departure - Departure Disposition: 01 Home, Self Care Clinical Impression: Laceration Condition: Stable Instructions: ED Laceration Ext Sutr Stap Tape Comments: Please keep your wound generally clean and dry. You may let water run over the wound, but please do not rub, scrub, or immerse the wound until sutures are removed. The stitches will need to be taken out in about 7 days. You may see your primary care physician for this or follow-up at the walk-in clinic or urgent care. If you cannot be seen in these places, you may return to the emergency department. If your wound develops redness and swelling spreading away from the wound, or if it splits open and drains pus, you should return immediately for reevaluation. Discharge Date/Time: 08/28/20 13:10
[2020-08-28 13:06] VITALS: BP 146/91
== END 2020-08-28 13:10 | disposition home or self-care (01) ==
LOC: ED 11:00
DX: S61.213A Laceration without foreign body of left middle finger without damage to nail, initial encounter (principal); W26.0XXA Contact with knife, initial encounter; I10 Essential (primary) hypertension; Z87.891 Personal history of nicotine dependence; Z23 Encounter for immunization
CPT/HCPCS: 12001; 90471; 99282; 99283

== ENCOUNTER 2020-10-26 15:06 | Outpatient (CLI) | payer MEDICARE ==
[2020-10-26 18:10] LABS: CALCIUM 8.9 mg/dL (8.5-10.3); CREATININE 0.8 mg/dL (0.6-1.2); POTASSIUM 3.4 mmol/L (3.5-5.0)
[2020-10-26 20:14] LABS: ESTIMATED AVERAGE GLUCOSE 186 mg/dL (70-100); HEMOGLOBIN A1c% 8.1 % (4.27-6.07)
== END 2020-10-26 15:07 | disposition home or self-care (01) ==
LOC: LAB.N 15:06
PROVIDERS: ATTEND Family Medicine
DX: E11.649 Type 2 diabetes mellitus with hypoglycemia without coma (principal)
CPT/HCPCS: 36415; 80048; 83036

== ENCOUNTER 2020-10-30 17:01 | Outpatient (CLI) | payer MEDICARE ==
--- NOTE | 2020-10-31 08:40 | XRAY Report ---
PROCEDURE: Hip w/Pelvis 1V LT INDICATIONS: L HIP PX TECHNIQUE: AP pelvis with lateral view(s) of the left hip(s). COMPARISON: None. FINDINGS: Bones: No fractures or dislocations but there is a mild degree of degenerative hip joint osteoarthri tis bilaterally, perhaps slightly greater on the right than the left.. Pelvic ring appears intact. No suspicious bony lesions. Soft tissues: The visualized bowel gas pattern is normal. No suspicious soft tissue calcifications. IMPRESSION: No trauma found. Bilateral mild hip joint osteoarthritis, which appears very slightly gr eater on the right than the left. Reviewed by: Chucho Cornell MD on 10/31/2020 8:38 AM PDT Approved by: Chucho Cornell MD on 10/31/2020 8:38 AM PDT Station ID: [id number]
== END 2020-10-30 17:02 | disposition home or self-care (01) ==
LOC: DI.N 17:01
PROVIDERS: ATTEND Family Medicine
DX: M25.552 Pain in left hip (principal); M16.0 Bilateral primary osteoarthritis of hip

== ENCOUNTER 2021-01-25 15:05 | Outpatient (CLI) | payer MEDICARE ==
[2021-01-25 20:23] LABS: CALCIUM 8.9 mg/dL (8.5-10.3); CREATININE 0.9 mg/dL (0.6-1.2); POTASSIUM 3.5 mmol/L (3.5-5.0)
[2021-01-25 20:49] LABS: ESTIMATED AVERAGE GLUCOSE 206 mg/dL (70-100); HEMOGLOBIN A1c% 8.8 % (4.27-6.07)
== END 2021-01-25 15:06 | disposition home or self-care (01) ==
LOC: LAB.N 15:05
PROVIDERS: ATTEND Family Medicine
DX: E11.9 Type 2 diabetes mellitus without complications (principal)
CPT/HCPCS: 36415; 80048; 83036

== ENCOUNTER 2021-05-02 09:30 | Outpatient (CLI) | payer MEDICARE ==
[2021-05-02 12:25] LABS: BASOPHILS # (AUTO) 0.1 10^3/uL (0.0-0.1); BASOPHILS % (AUTO) 0.9 %; EOSINOPHILS # (AUTO) 0.3 10^3/uL (0.0-0.7); HCT - HEMATOCRIT 43.8 % (42.0-52.0); HGB - HEMOGLOBIN 14.6 g/dL (14.0-18.0); LYMPHOCYTES # (AUTO) 1.3 10^3/uL (1.5-3.5); LYMPHOCYTES % (AUTO) 23.4 %; MEAN CORPUSCULAR HEMOGLOBIN 31.1 pg (27.0-31.0); MEAN CORPUSCULAR HGB CONC 33.3 g/dL (32.0-36.0); MEAN CORPUSCULAR VOLUME 93.4 fL (80.0-94.0); MONOCYTES # (AUTO) 0.6 10^3/uL (0.0-1.0); MONOCYTES % (AUTO) 10.4 %; NEUTROPHILS # (AUTO) 3.2 10^3/uL (1.5-6.6); NEUTROPHILS % (AUTO) 59.9 %; PLT - PLATELET COUNT 271 10^3/uL (130-450); RED BLOOD COUNT 4.69 10^6/uL (4.70-6.10); RED CELL DISTRIBUTION WIDTH 13.3 % (12.0-15.0); WHITE BLOOD COUNT 5.4 x10^3/uL (4.8-10.8)
[2021-05-02 12:40] LABS: ESTIMATED AVERAGE GLUCOSE 177 mg/dL (70-100); HEMOGLOBIN A1c% 7.8 % (4.27-6.07)
[2021-05-02 12:54] LABS: ALBUMIN/GLOBULIN RATIO 1.1 (1.0-2.2); ALKALINE PHOSPHATASE 85 IU/L (42-121); ALT ALANINE AMINOTRANSFERASE 35 IU/L (10-60); AST ASPARTATE AMINOTRANSFERASE 33 IU/L (10-42); BUN - BLOOD UREA NITROGEN 20 mg/dL (6-20); CARBON DIOXIDE - CO2 25 mmol/L (21-32); CHLORIDE 102 mmol/L (101-111); CHOL/HDL RATIO 5.2 (<5.0); CHOLESTEROL 155 mg/dL; CREATININE 0.9 mg/dL (0.6-1.2); GFR - MDRD 84 (>89); GLUCOSE 151 mg/dL (70-100); HDL CHOLESTEROL 30 mg/dL; LDL CHOLESTEROL,CALCULATED 80 mg/dL; LDL/HDL RATIO 2.7 (<3.6); POTASSIUM 3.6 mmol/L (3.5-5.0); SODIUM 135 mmol/L (135-145); TOTAL PROTEIN 7.6 g/dL (6.7-8.2); TRIGLYCERIDES 226 mg/dL; VLDL CHOLESTEROL 45 mg/dL
[2021-05-02 13:03] LABS: THYROID STIMULATING HORMONE 1.07 uIU/mL (0.34-5.60)
== END 2021-05-02 09:31 | disposition home or self-care (01) ==
LOC: LAB.N 09:30
PROVIDERS: ATTEND Family Medicine
DX: R16.0 Hepatomegaly, not elsewhere classified (principal); E78.5 Hyperlipidemia, unspecified; E11.9 Type 2 diabetes mellitus without complications; Z12.5 Encounter for screening for malignant neoplasm of prostate; Z79.899 Other long term (current) drug therapy
CPT/HCPCS: 36415; 80053; 80061; 83036; 84443; 85025; G0103; 83721; 84153

== ENCOUNTER 2021-05-27 18:17 | Emergency (ER) | payer MEDICARE ==
--- NOTE | 2021-05-27 19:41 | XRAY Report ---
PROCEDURE: Chest 1 View X-Ray INDICATIONS: Chest Pain TECHNIQUE: One view of the chest was acquired. COMPARISON: Chest x-ray 2 views, 05/31/2019 CT angiogram chest, 09/23/2012. FINDINGS: Surgical changes and devices: None. Lungs and pleura: No pleural effusions or pneumothorax. Mild bilateral interstitial prominence appe ars unchanged. No focal consolidation or pleural effusion. Mediastinum: Mediastinal contours appear normal. Heart size is normal. Bones and chest wall: No suspicious bony lesions. Overlying soft tissues appear unremarkable. IMPRESSION: No acute cardiopulmonary disease. Reviewed by: Monique Charles MD on 05/27/2021 7:40 PM PST Approved by: Monique Charles MD on 05/27/2021 7:40 PM PST Station ID: [id number]
[2021-05-27 20:10] LABS: BASOPHILS % (AUTO) 0.5 %; EOSINOPHILS # (AUTO) 0.3 10^3/uL (0.0-0.7); EOSINOPHILS % (AUTO) 5.1 %; HCT - HEMATOCRIT 43.6 % (42.0-52.0); HGB - HEMOGLOBIN 14.7 g/dL (14.0-18.0); LYMPHOCYTES # (AUTO) 1.4 10^3/uL (1.5-3.5); MEAN CORPUSCULAR HEMOGLOBIN 31.1 pg (27.0-31.0); MEAN CORPUSCULAR HGB CONC 33.7 g/dL (32.0-36.0); MEAN CORPUSCULAR VOLUME 92.4 fL (80.0-94.0); MEAN PLATELET VOLUME 9.6 fL (7.4-11.4); MONOCYTES # (AUTO) 0.6 10^3/uL (0.0-1.0); MONOCYTES % (AUTO) 9.5 %; NEUTROPHILS # (AUTO) 3.8 10^3/uL (1.5-6.6); NEUTROPHILS % (AUTO) 61.7 %; PLT - PLATELET COUNT 260 10^3/uL (130-450); RED BLOOD COUNT 4.72 10^6/uL (4.70-6.10); RED CELL DISTRIBUTION WIDTH 12.9 % (12.0-15.0); WHITE BLOOD COUNT 6.1 x10^3/uL (4.8-10.8)
[2021-05-27 20:27] LABS: ALBUMIN 3.8 g/dL (3.2-5.5); BILIRUBIN,TOTAL 0.3 mg/dL (0.2-1.0); CREATININE 0.8 mg/dL (0.6-1.2); TOTAL PROTEIN 7.5 g/dL (6.7-8.2)
--- NOTE | 2021-05-27 21:01 | ED Physician Documentation ---
History of Present Illness - Stated complaint Stated Complaint: HIGH BP,NAUSEA,WEAK - Chief complaint Chief Complaint: Cardiac - History obtained from History obtained from: Patient - Additonal information Additional information: Emergency department for chief complaint of elevated blood pressure and feeling "funny". Patient states he first noticed the feeling around noon states he just felt "off". He states he had some mild nausea and a little pressure in his chest, but no shortness of breath associated with the episode. He did not have any actual chest pain. Patient states he took his blood pressure and it was 225/105. The patient had taken his lisinopril as usual this morning and did not take any further doses throughout the day. He states he took his blood pressure several times over the course of the next couple of hours and found that it was remaining around the same level. Patient states he finally decided to come in to get checked out. He states he actually feels a little bit better and his blood pressure has come down somewhat from that although it is higher than it normally runs, which is around a systolic of 140. Patient states that he has not had any recent changes to his blood pressure medication. He has been on lisinopril 20 mg twice daily for years and has been stable on this. He did recently have his diabetic medication changed, and is not sure how his blood pressure has been running since then. Patient states he has not been ill with anything recently. No current chest discomfort. No neurologic complaints. No other complaints at this time. Review of Systems Ten Systems: 10 systems reviewed and negative Constitutional: reports: Reviewed and negative Eyes: reports: Reviewed and negative Ears: reports: Reviewed and negative Nose: reports: Reviewed and negative Throat: reports: Reviewed and negative Cardiac: reports: Chest pain / pressure Respiratory: reports: Reviewed and negative GI: reports: Nausea. denies: Vomiting : reports: Reviewed and negative Skin: reports: Reviewed and negative Musculoskeletal: reports: Reviewed and negative Neurologic: reports: Reviewed and negative Psychiatric: reports: Reviewed and negative Endocrine: reports: Reviewed and negative Immunocompromised: reports: Reviewed and negative PD PAST MEDICAL HISTORY - Past Medical History Cardiovascular: Hypertension, High cholesterol Respiratory: Emphysema, Other Neuro: None Endocrine/Autoimmune: None GI: GERD, Other : None HEENT: Other Psych: Depression Musculoskeletal: Osteoarthritis Derm: Eczema - Past Surgical History Past Surgical History: Yes General: Colonoscopy Ortho: Knee replacement, Arthroscopic surgery - Present Medications Home Medications: Ambulatory Orders Medication Instructions Recorded Confirmed Chlorthalidone 12.5 mg PO DAILY 02/19/16 08/28/20 Fluoxetine HCl 25 mg PO DAILY 02/19/16 08/28/20 Omeprazole [PriLOSEC] 20 mg PO QDAC 02/19/16 08/28/20 lisinopriL [Prinivil] 20 mg PO BID 02/19/16 08/28/20 Celecoxib [Celebrex] 200 mg PO DAILY 08/18/16 08/28/20 Atorvastatin [Lipitor] 20 mg ORAL DAILY 08/28/20 08/28/20 - Allergies Allergies/Adverse Reactions: Allergies Allergy/AdvReac Type Severity Reaction Status Date / Time cat dander Allergy Severe Respiratory Verified 05/27/21 19:03 - Social History Does the pt smoke?: No Smoking Status: Former smoker Does the pt drink ETOH?: Yes Does the pt have substance abuse?: No - Immunizations Immunizations are current?: No Immunizations: TDAP >10years/unknown - POLST Patient has POLST: No PD ED PE NORMAL - Vitals Vital signs reviewed: Yes - General General: Alert and oriented X 3, No acute distress, Well developed/nourished - HEENT HEENT: Atraumatic, PERRL, EOMI, Moist mucous membranes - Neck Neck: Supple, no meningeal sign - Cardiac Cardiac: RRR, No murmur - Respiratory Respiratory: No respiratory distress, Clear bilaterally - Abdomen Abdomen: Soft, Non tender, Non distended - Derm Derm: Normal color, Warm and dry, No rash - Extremities Extremities: No deformity, No edema - Neuro Neuro: Alert and oriented X 3, director loan 2-12 intact, Normal speech, Other (Grossly intact) - Psych Psych: Normal mood, Normal affect Results - Vitals Vitals: Vital Signs - 24 hr 05/27/21 05/27/21 05/27/21 19:03 21:05 21:07 Temperature 37.1 C Heart Rate 57 L 59 L 57 L Respiratory 18 16 16 Rate Blood Pressure 165/91 H 165/88 H 165/88 H O2 Saturation 96 96 97 Oxygen O2 Source Room air - EKG (time done) 1904 Rate: Rate (enter#) (57) Rhythm: NSR [place]: Normal Intervals: Normal [place], RBBB QRS: Normal Ischemia: Normal ST segments Compare to prior EKG: Unchanged from prior EKG Computer interpretation: Agree with computer - Labs Labs: Laboratory Tests 05/27/21 05/27/21 05/27/21 20:00 20:00 20:00 WBC 6.1 RBC 4.72 Hgb 14.7 Hct 43.6 MCV 92.4 MCH 31.1 H MCHC 33.7 RDW 12.9 Plt Count 260 MPV 9.6 Neut # (Auto) 3.8 Lymph # (Auto) 1.4 L [place] # (Auto) 0.6 Eos # (Auto) 0.3 Baso # (Auto) 0.0 Absolute Nucleated RBC 0.00 Nucleated RBC % 0.0 Sodium 140 Potassium 4.0 Chloride 105 Carbon Dioxide 26 Anion Gap 9.0 BUN 19 Creatinine 0.8 Estimated GFR (MDRD) 96 Glucose 149 H Calcium 9.0 Total Bilirubin 0.3 AST 22 ALT 32 Alkaline Phosphatase 93 Troponin I High Sens 7.9 Total Protein 7.5 Albumin 3.8 Globulin 3.7 Albumin/Globulin Ratio 1.0 Lipase 31 PD MEDICAL DECISION MAKING - ED course Complexity details: reviewed old records, reviewed results, re-evaluated patient, considered differential, d/w patient ED course: The patient was very well-appearing, but given his symptoms and high blood pressure, he was worked up with EKG, chest x-ray, and labs. Labs including troponin were unremarkable. EKG was Minimally changed since 2016 with the new addition of left anterior fascicular block to existing right bundle branch block. I discussed with the patient that it is unclear whether this is just a temporary rise in his blood pressure or whether this will become a more chronic issue. As such, the best plan for now is to go up on his lisinopril dose for the time being. The patient is advised that he may double his lisinopril to 40 mg twice daily, and monitor his blood pressure. If his blood pressure seems to be coming down, he may back off on the increased dose. If he goes back to normal, then he may return to his normal lisinopril dose. I have advised the patient to try to get an appoint with his primary care physician, even a telemetry health visit, within the next week to revisit the issue of his blood pressure. Of course, if the patient develops significant chest pain or shortness of breath, he should return to the emergency department immediately and we have discussed this. Departure - Departure Disposition: 01 Home, Self Care Clinical Impression: Hypertension Qualifiers: Hypertension type: unspecified Qualified Code(s): I10 - Essential (primary) hypertension Condition: Stable Instructions: ED HTN Established Comments: Your blood pressure is elevated today, but you are not in hypertensive emergency, which is characterized by signs of vital organ damage. However, we do not want your blood pressure to chronically stay elevated to the level that it has been and as such, we will temporarily raise your lisinopril dose to 40 mg twice daily instead of 20 mg. You may keep tabs on your blood pressure throughout the day to see how you are responding to this new dosing. If you feel that you do not need to take the higher dose anymore, if your blood pressure has returned to what it was before, then you may back off from this and see how your blood pressure does. Otherwise, you may continue the higher dosing regimen until you are able to see your doctor. Please call tomorrow to make an appointment to follow-up with your primary care physician preferably within the next week. If you develop severe chest pain or shortness of breath, you should return to the emergency department immediately. Discharge Date/Time: 05/27/21 22:20
[2021-05-27 21:08] VITALS: BP 165/88
== END 2021-05-27 22:20 | disposition home or self-care (01) ==
LOC: ED 18:17
DX: I10 Essential (primary) hypertension (principal); I45.2 Bifascicular block; Z87.891 Personal history of nicotine dependence
CPT/HCPCS: 36415; 80053; 83690; 84484; 85025; 93005; 99284

== ENCOUNTER 2021-08-01 09:21 | Outpatient (CLI) | payer MEDICARE ==
[2021-08-01 12:47] LABS: CALCIUM 9.2 mg/dL (8.5-10.3); CREATININE 0.9 mg/dL (0.6-1.2); POTASSIUM 3.7 mmol/L (3.5-5.0)
[2021-08-01 13:14] LABS: CREATININE,URINE 218.1 mg/dL; MICROALBUM/CREATININE RATIO,UR 37.1 ug/mg (<30.0); MICROALBUMIN,URINE 8.1 mg/dL (0-300.0)
[2021-08-01 13:36] LABS: ESTIMATED AVERAGE GLUCOSE 166 mg/dL (70-100); HEMOGLOBIN A1c% 7.4 % (4.27-6.07)
== END 2021-08-01 09:22 | disposition home or self-care (01) ==
LOC: LAB.N 09:21
PROVIDERS: ATTEND Family Medicine
DX: E11.9 Type 2 diabetes mellitus without complications (principal)
CPT/HCPCS: 36415; 80048; 82043; 82570; 83036

== ENCOUNTER 2021-09-30 08:00 | Outpatient (CLI) | payer MEDICARE ==
--- NOTE | 2021-09-30 17:02 | XRAY Report ---
PROCEDURE: Wrist 3 View LT INDICATIONS: L WRIST FOOSH INJURY TECHNIQUE: 3 views of the wrist were acquired. COMPARISON: None FINDINGS: Bones: No fractures or dislocations. No suspicious bony lesions. Soft tissues: No suspicious soft tissue calcifications. IMPRESSION: No evidence acute bony abnormality of the left wrist. If clinical suspicion and/or symptoms persist, further assessment with repeat plain films or advanced imaging (e.g., CT, MRI, or bone scan) may be helpful for further assessment. Reviewed by: Elliott Vernon MD on 09/30/2021 5:01 PM PDT Approved by: Elliott Vernon MD on 09/30/2021 5:01 PM PDT Station ID: [id number]
== END 2021-09-30 23:59 | disposition home or self-care (01) ==
LOC: DI.N 08:00
PROVIDERS: ATTEND Physician Assistant Medical
DX: S63.592A Other specified sprain of left wrist, initial encounter (principal)

== ENCOUNTER 2021-11-06 11:27 | Outpatient (CLI) | payer MEDICARE ==
[2021-11-06 17:45] LABS: BASOPHILS % (AUTO) 0.7 %; EOSINOPHILS # (AUTO) 0.3 10^3/uL (0.0-0.7); EOSINOPHILS % (AUTO) 4.4 %; HCT - HEMATOCRIT 46.6 % (42.0-52.0); HGB - HEMOGLOBIN 15.9 g/dL (14.0-18.0); LYMPHOCYTES # (AUTO) 1.3 10^3/uL (1.5-3.5); LYMPHOCYTES % (AUTO) 21.1 %; MEAN CORPUSCULAR HEMOGLOBIN 31.7 pg (27.0-31.0); MEAN CORPUSCULAR HGB CONC 34.1 g/dL (32.0-36.0); MEAN PLATELET VOLUME 10.6 fL (7.4-11.4); MONOCYTES # (AUTO) 0.5 10^3/uL (0.0-1.0); MONOCYTES % (AUTO) 8.9 %; NEUTROPHILS # (AUTO) 3.9 10^3/uL (1.5-6.6); NEUTROPHILS % (AUTO) 64.6 %; PLT - PLATELET COUNT 271 10^3/uL (130-450); RED BLOOD COUNT 5.01 10^6/uL (4.70-6.10); RED CELL DISTRIBUTION WIDTH 12.6 % (12.0-15.0)
[2021-11-06 17:53] LABS: ALKALINE PHOSPHATASE 111 IU/L (42-121); ALT ALANINE AMINOTRANSFERASE 53 IU/L (10-60); AST ASPARTATE AMINOTRANSFERASE 40 IU/L (10-42); BILIRUBIN,TOTAL 1.1 mg/dL (0.2-1.0); BUN - BLOOD UREA NITROGEN 16 mg/dL (6-20); CALCIUM 9.2 mg/dL (8.5-10.3); CARBON DIOXIDE - CO2 26 mmol/L (21-32); CHLORIDE 101 mmol/L (101-111); CHOL/HDL RATIO 5.5 (<5.0); CHOLESTEROL 186 mg/dL; CREATININE 0.8 mg/dL (0.6-1.2); GFR - MDRD 96 (>89); GLUCOSE 178 mg/dL (70-100); HDL CHOLESTEROL 34 mg/dL; LDL CHOLESTEROL,CALCULATED 77 mg/dL; LDL/HDL RATIO 2.3 (<3.6); SODIUM 137 mmol/L (135-145); TOTAL PROTEIN 7.9 g/dL (6.7-8.2); TRIGLYCERIDES 376 mg/dL; VLDL CHOLESTEROL 75 mg/dL
[2021-11-06 18:00] LABS: CREATININE,URINE 141.3 mg/dL; MICROALBUM/CREATININE RATIO,UR 100.5 ug/mg (<30.0); MICROALBUMIN,URINE 14.2 mg/dL (0-300.0)
[2021-11-06 18:03] LABS: THYROID STIMULATING HORMONE 1.65 uIU/mL (0.34-5.60)
[2021-11-06 20:55] LABS: ESTIMATED AVERAGE GLUCOSE 177 mg/dL (70-100); HEMOGLOBIN A1c% 7.8 % (4.27-6.07)
== END 2021-11-06 11:28 | disposition home or self-care (01) ==
LOC: LAB.N 11:27
PROVIDERS: ATTEND Family Medicine
DX: I10 Essential (primary) hypertension (principal); K76.0 Fatty (change of) liver, not elsewhere classified; E78.5 Hyperlipidemia, unspecified; E11.9 Type 2 diabetes mellitus without complications; M51.36 Other intervertebral disc degeneration, lumbar region; K21.9 Gastro-esophageal reflux disease without esophagitis
CPT/HCPCS: 36415; 80053; 80061; 82043; 82570; 83036; 83721; 84443; 85025

== ENCOUNTER 2021-11-29 08:34 | Emergency (ER) | payer MEDICARE ==
--- NOTE | 2021-11-29 08:55 | ED Physician Documentation ---
PD HPI CHEST PAIN - Stated complaint Stated Complaint: HIGHBLOOD - Chief complaint Chief Complaint: Cardiac - History obtained from History obtained from: Patient - History of Present Illness Timing - onset: Yesterday Timing - onset during: Rest, Other (has noted his BP elevated above 200 since yesterday, taken several times.). No: Exertion (mowed lawn yesterday without symptoms.) Timing - details: Gradual onset, Waxing and waning Quality: Pressure (feeling chest pressure at times. Feeling anxious at times as well. Recently stopped cannibis use from daily to none 4 days ago. Had similarly stopped cannibis abruptly in May and had BP elevated and felt similar symptoms for a week or so at that time.) Location: Substernal, Upper back Improved by: No: Rest Worsened by: Movement. No: Exertion, Eating Associated symptoms: Feeling faint / dizzy. No: Shortness of air, Nausea, General Weakness, Palpitations, Cough Similar symptoms before: No diagnosis (similar symptoms Eli for 1-2 weeks. BP improved gradually. Was started on Diltiazem soon after though by PMD.) Recently seen: Not recently seen Review of Systems Constitutional: denies: Fever, Chills Nose: denies: Rhinorrhea / runny nose, Congestion Throat: denies: Sore throat Cardiac: reports: Chest pain / pressure. denies: Palpitations, Pedal edema, Calf pain Respiratory: denies: Dyspnea, Cough, Wheezing GI: denies: Abdominal Pain, Nausea, Vomiting, Diarrhea Neurologic: denies: Focal weakness, Numbness, Altered mental status, Headache Psychiatric: reports: Anxiety, Insomnia. denies: Depressed, Suicidal Endocrine: denies: Weight loss, Weight gain PD PAST MEDICAL HISTORY - Past Medical History Cardiovascular: Hypertension, High cholesterol Respiratory: Emphysema, Other Neuro: None Endocrine/Autoimmune: None GI: GERD, Other : None HEENT: Other Psych: Depression Musculoskeletal: Osteoarthritis Derm: Eczema - Past Surgical History Past Surgical History: Yes General: Colonoscopy Ortho: Knee replacement, Arthroscopic surgery - Present Medications Home Medications: Ambulatory Orders Medication Instructions Recorded Confirmed Chlorthalidone 12.5 mg PO DAILY 02/19/16 08/28/20 Fluoxetine HCl 25 mg PO DAILY 02/19/16 08/28/20 Omeprazole [PriLOSEC] 20 mg PO QDAC 02/19/16 08/28/20 lisinopriL [Prinivil] 20 mg PO BID 02/19/16 08/28/20 Celecoxib [Celebrex] 200 mg PO DAILY 08/18/16 08/28/20 Atorvastatin [Lipitor] 20 mg ORAL DAILY 08/28/20 08/28/20 LORazepam [Ativan] 1 mg PO BID PRN #10 tablet 11/29/21 - Allergies Allergies/Adverse Reactions: Allergies Allergy/AdvReac Type Severity Reaction Status Date / Time cat dander Allergy Severe Respiratory Verified 05/27/21 19:03 - Living Situation Living Arrangement: reports: At home - Social History Does the pt smoke?: No Smoking Status: Former smoker Does the pt drink ETOH?: Yes Does the pt have substance abuse?: Yes Substance Use and Type: Marijuana (stopped use 4 days ago.) - Immunizations Immunizations are current?: No Immunizations: TDAP >10years/unknown - POLST Patient has POLST: No PD ED PE NORMAL - Vitals Vital signs reviewed: Yes - General General: Alert and oriented X 3, No acute distress, Well developed/nourished - Neck Neck: Supple, no meningeal sign, No adenopathy - Cardiac Cardiac: RRR, No murmur - Respiratory Respiratory: Clear bilaterally - Abdomen Abdomen: Normal bowel sounds, Soft, Non tender, Non distended - Back Back: No CVA TTP - Derm Derm: Normal color, Warm and dry - Extremities Extremities: Normal ROM s pain, No edema, No calf tenderness / cord - Neuro Neuro: Alert and oriented X 3, No motor deficit, No sensory deficit, Normal speech Results - Vitals Vitals: Vital Signs - 24 hr 11/29/21 11/29/21 11/29/21 08:40 09:05 10:51 Temperature 36.5 C Heart Rate 64 68 Respiratory 17 17 Rate Blood Pressure 209/94 H 160/87 H Blood Pressure 194/99 H [Left] O2 Saturation 99 98 Oxygen O2 Source Room air - EKG (time done) 09:11 Rate: Rate (enter#) (67) Rhythm: NSR Intervals: RBBB Ischemia: Non specific changes. No: ST elevation c/w ischemia Compare to prior EKG: Unchanged from prior EKG (05/27/21) - Labs Labs: Laboratory Tests 11/29/21 11/29/21 11/29/21 09:00 09:00 09:00 WBC 6.6 RBC 5.03 Hgb 15.7 Hct 45.8 MCV 91.1 MCH 31.2 H MCHC 34.3 RDW 12.8 Plt Count 282 MPV 9.6 Neut # (Auto) 4.2 Lymph # (Auto) 1.4 L [place] # (Auto) 0.6 Eos # (Auto) 0.4 Baso # (Auto) 0.0 Absolute Nucleated RBC 0.00 Nucleated RBC % 0.0 Sodium 136 Potassium 3.6 Chloride 98 L Carbon Dioxide 25 Anion Gap 13.0 BUN 19 Creatinine 0.9 Estimated GFR (MDRD) 84 L Glucose 249 H Calcium 9.4 Magnesium Total Bilirubin 1.3 H AST 56 H ALT 71 H Alkaline Phosphatase 124 H Troponin I High Sens 6.5 B-Natriuretic Peptide Total Protein 8.5 H Albumin 4.3 Globulin 4.2 Albumin/Globulin Ratio 1.0 Lipase 35 11/29/21 11/29/21 09:00 09:00 WBC RBC Hgb Hct MCV MCH MCHC RDW Plt Count MPV Neut # (Auto) Lymph # (Auto) [place] # (Auto) Eos # (Auto) Baso # (Auto) Absolute Nucleated RBC Nucleated RBC % Sodium Potassium Chloride Carbon Dioxide Anion Gap BUN Creatinine Estimated GFR (MDRD) Glucose Calcium Magnesium 2.2 Total Bilirubin AST ALT Alkaline Phosphatase Troponin I High Sens B-Natriuretic Peptide 27 Total Protein Albumin Globulin Albumin/Globulin Ratio Lipase - Rads (name of study) chest Radiology: Prelim report reviewed (bibasilar atelectasis. No infiltrates. ), See rad report PD MEDICAL DECISION MAKING - ED course Complexity details: reviewed results, considered differential (his BP is likely elevated as result of anxiety and cessation of his daily cannibis that he stopped 3 days ago. ), d/w patient Departure - Departure Disposition: Home, Self Care Clinical Impression: Elevated blood pressure reading, Anxiety Condition: Stable Record reviewed to determine appropriate education?: Yes Follow-Up: Maximo Haskins MD [Provider Admit Priv/Credential] - Prescriptions: LORazepam [Ativan] 1 mg PO BID PRN #10 tablet PRN Reason: Anxiety Comments: In the short-term you could increase your lisinopril to 40 mg in the morning and 20 at night (increased from the 20 twice a day currently). I would keep the diltiazem at the same dose. Continue your other usual medicines. In the short-term you could also add lorazepam at night to help with sleep or up to twice daily if needed for anxiety. The intention of this would be over the next week as your body adjusts to being off the cannabis. Stay well-hydrated. Follow-up with your primary care if persistent elevated blood pressure. Your basic blood tests here are essentially normal. You have a slight elevation of your liver enzymes but this looks similar to prior blood tests. Otherwise kidney function and electrolytes are good. No signs of heart failure no heart attack. Your chest x-ray is clear. I transmitted your prescription to [facility] in [place]. Discharge Date/Time: 11/29/21 10:52
[2021-11-29 09:07] LABS: BASOPHILS % (AUTO) 0.6 %; EOSINOPHILS # (AUTO) 0.4 10^3/uL (0.0-0.7); EOSINOPHILS % (AUTO) 5.3 %; HCT - HEMATOCRIT 45.8 % (42.0-52.0); HGB - HEMOGLOBIN 15.7 g/dL (14.0-18.0); LYMPHOCYTES # (AUTO) 1.4 10^3/uL (1.5-3.5); LYMPHOCYTES % (AUTO) 21.5 %; MEAN CORPUSCULAR HEMOGLOBIN 31.2 pg (27.0-31.0); MEAN CORPUSCULAR HGB CONC 34.3 g/dL (32.0-36.0); MEAN CORPUSCULAR VOLUME 91.1 fL (80.0-94.0); MEAN PLATELET VOLUME 9.6 fL (7.4-11.4); MONOCYTES # (AUTO) 0.6 10^3/uL (0.0-1.0); MONOCYTES % (AUTO) 8.4 %; NEUTROPHILS # (AUTO) 4.2 10^3/uL (1.5-6.6); NEUTROPHILS % (AUTO) 63.6 %; PLT - PLATELET COUNT 282 10^3/uL (130-450); RED BLOOD COUNT 5.03 10^6/uL (4.70-6.10); RED CELL DISTRIBUTION WIDTH 12.8 % (12.0-15.0); WHITE BLOOD COUNT 6.6 x10^3/uL (4.8-10.8)
[2021-11-29] MEDS ORDERED: LORazepam 2 MG/ML VIAL IVP STA (09:16)
[2021-11-29 09:25] LABS: ALBUMIN 4.3 g/dL (3.2-5.5); BILIRUBIN,TOTAL 1.3 mg/dL (0.2-1.0); CALCIUM 9.4 mg/dL (8.5-10.3); CREATININE 0.9 mg/dL (0.6-1.2); POTASSIUM 3.6 mmol/L (3.5-5.0); TOTAL PROTEIN 8.5 g/dL (6.7-8.2)
--- NOTE | 2021-11-29 09:42 | XRAY Report ---
PROCEDURE: Chest 1 View X-Ray INDICATIONS: Chest pain TECHNIQUE: One view of the chest was acquired. COMPARISON: 05/31/2019, 05/27/2009 FINDINGS: Surgical changes and devices: None. Lungs and pleura: No pleural effusions or pneumothorax. Basal opacities likely atelectasis. Mediastinum: Mediastinal contours appear normal. Heart size is normal. Bones and chest wall: No suspicious bony lesions. Overlying soft tissues appear unremarkable. IMPRESSION: Basilar opacities, probably atelectasis. No acute radiographic abnormality. Reviewed by: Sadiq Gonzalez MD on 11/29/2021 9:40 AM PDT Approved by: Sadiq Gonzalez MD on 11/29/2021 9:40 AM PDT Station ID: [id number]
[2021-11-29 10:52] VITALS: BP 160/87
== END 2021-11-29 10:52 | disposition home or self-care (01) ==
LOC: ED 08:34
DX: I10 Essential (primary) hypertension (principal); F41.9 Anxiety disorder, unspecified; Z87.891 Personal history of nicotine dependence
CPT/HCPCS: 36415; 71045; 80053; 83690; 83735; 83880; 84484; 85025; 93005; 96374; 99284; J2060

== ENCOUNTER 2022-02-07 11:10 | Outpatient (CLI) | payer MEDICARE ==
[2022-02-07 18:28] LABS: CREATININE 0.9 mg/dL (0.6-1.2); POTASSIUM 3.8 mmol/L (3.5-5.0)
[2022-02-07 19:57] LABS: CREATININE,URINE 154.4 mg/dL; MICROALBUM/CREATININE RATIO,UR 42.1 ug/mg (<30.0); MICROALBUMIN,URINE 6.5 mg/dL (0-300.0)
[2022-02-09 13:21] LABS: ESTIMATED AVERAGE GLUCOSE 183 mg/dL (70-100)
== END 2022-02-07 11:11 | disposition home or self-care (01) ==
LOC: LAB.N 11:10
PROVIDERS: ATTEND Family Medicine
DX: E11.65 Type 2 diabetes mellitus with hyperglycemia (principal)
CPT/HCPCS: 36415; 80048; 82043; 82570; 83036

== ENCOUNTER 2022-04-04 17:23 | Emergency (ER) | payer MEDICARE ==
[2022-04-04] MEDS ORDERED: METOCLOPRAMIDE 10 MG/2 ML VIAL IVP STA (17:41)
[2022-04-04] MEDS ORDERED: SODIUM CHLORIDE 0.9% 1,000 ML IV STA (17:41)
--- NOTE | 2022-04-04 18:04 | ED Physician Documentation ---
PD HPI NVD - Stated complaint Stated Complaint: N/V/D - Chief complaint Chief Complaint: Abd Pain - History obtained from History obtained from: Patient - Additonal information Additional information: 71-year-old gentleman with type 2 diabetes and COPD initially got sick on March 18 with a flulike illness but has had cough and persistent shortness of breath ever since. More acutely today around 9 AM developed nausea vomiting and diarrhea, there is no abdominal pain or fever associated with this. His grandson was sick with a GI illness a couple of days ago. Review of Systems Ten Systems: 10 systems reviewed and negative Constitutional: denies: Fever, Chills Nose: reports: Reviewed and negative Throat: reports: Reviewed and negative Cardiac: reports: Reviewed and negative Respiratory: reports: Reviewed and negative PD PAST MEDICAL HISTORY - Past Medical History Cardiovascular: Hypertension, High cholesterol Respiratory: Emphysema, Other Neuro: None Endocrine/Autoimmune: None GI: GERD, Other : None HEENT: Other Psych: Depression Musculoskeletal: Osteoarthritis Derm: Eczema - Past Surgical History Past Surgical History: Yes General: Colonoscopy Ortho: Knee replacement, Arthroscopic surgery - Present Medications Home Medications: Ambulatory Orders Medication Instructions Recorded Confirmed Chlorthalidone 12.5 mg PO DAILY 02/19/16 08/28/20 Fluoxetine HCl 25 mg PO DAILY 02/19/16 08/28/20 Omeprazole [PriLOSEC] 20 mg PO QDAC 02/19/16 08/28/20 lisinopriL [Prinivil] 20 mg PO BID 02/19/16 08/28/20 Celecoxib [Celebrex] 200 mg PO DAILY 08/18/16 08/28/20 Atorvastatin [Lipitor] 20 mg ORAL DAILY 08/28/20 08/28/20 LORazepam [Ativan] 1 mg PO BID PRN #10 tablet 11/29/21 Ondansetron Odt [Zofran] 4 mg TL Q6H PRN #10 tablet 04/04/22 - Allergies Allergies/Adverse Reactions: Allergies Allergy/AdvReac Type Severity Reaction Status Date / Time cat dander Allergy Severe Respiratory Verified 04/04/22 17:35 - Social History Does the pt smoke?: No Smoking Status: Former smoker Does the pt drink ETOH?: Yes Does the pt have substance abuse?: Yes - Immunizations Immunizations are current?: No Immunizations: TDAP >10years/unknown - POLST Patient has POLST: No PD ED PE NORMAL - Vitals Vital signs reviewed: Yes - General General: Alert and oriented X 3, Other (Actively retching, vomits is not bloody or dark appearing.) - HEENT HEENT: PERRL, EOMI - Neck Neck: Supple, no meningeal sign, No bony TTP - Cardiac Cardiac: RRR, No murmur - Respiratory Respiratory: No respiratory distress, Clear bilaterally - Abdomen Abdomen: Normal bowel sounds, Soft, Non tender - Back Back: No CVA TTP, No spinal TTP - Derm Derm: Normal color, Warm and dry - Extremities Extremities: No edema, No calf tenderness / cord - Neuro Neuro: Alert and oriented X 3, Normal speech Results - Vitals Vitals: Vital Signs - 24 hr 04/04/22 04/04/22 04/04/22 17:31 18:28 20:13 Temperature 36.4 C L Heart Rate 76 86 82 Respiratory 16 18 18 Rate Blood Pressure 159/81 H 169/92 H 163/91 H O2 Saturation 94 96 94 Oxygen O2 Source Room air - Labs Labs: Laboratory Tests 04/04/22 04/04/22 04/04/22 18:24 18:24 19:31 WBC 12.5 H RBC 5.27 Hgb 16.0 Hct 47.2 MCV 89.6 MCH 30.4 MCHC 33.9 RDW 12.4 Plt Count 451 H MPV 9.6 Neut # (Auto) 10.3 H Lymph # (Auto) 1.1 L [place] # (Auto) 0.8 Eos # (Auto) 0.2 Baso # (Auto) 0.0 Absolute Nucleated RBC 0.00 Nucleated RBC % 0.0 Sodium 140 Potassium 3.8 Chloride 104 Carbon Dioxide 23 Anion Gap 13.0 BUN 21 H Creatinine 0.9 Estimated GFR (MDRD) 83 L Glucose 179 H Calcium 9.6 Total Bilirubin 1.6 H AST 54 H ALT 89 H Alkaline Phosphatase 130 H Total Protein 8.2 Albumin 4.3 Globulin 3.9 Albumin/Globulin Ratio 1.1 Lipase 63 H Urine Color DARK YELLOW Urine Clarity CLEAR Urine pH 6.0 Ur Specific [place] >=1.030 H Urine Protein 30 H Urine Glucose (UA) NEGATIVE Urine Ketones TRACE Urine Occult Blood NEGATIVE Urine Nitrite NEGATIVE Urine Bilirubin SMALL H Urine Urobilinogen 0.2 (NORMAL) Ur Leukocyte Esterase NEGATIVE Urine RBC 0-5 Urine WBC 0-3 Ur Squamous Epith Cells NONE SEEN Urine Bacteria Rare Urine Casts 0-2 Hyaline Casts Urine Mucus Moderate Strands Ur Microscopic Review INDICATED Urine Culture Comments NOT INDICATED - Rads (name of study) 2 view chest x-ray demonstrates no acute disease Radiology: EMP read contemporaneously PD MEDICAL DECISION MAKING - ED course ED course: 71-year-old gentleman presents with what sounds like a viral gastroenteritis. Benign exam. Lab work notable for mild transaminitis, but review of the chart shows this is a chronic phenomenon. He was medicated here with IV fluids and Reglan with modest relief and this was followed with some IV Zofran with good relief. He requested a chest x-ray due to ongoing shortness of breath after a recent flulike illness and this was negative. Departure - Departure Disposition: 01 Home, Self Care Clinical Impression: Gastroenteritis Condition: Good Record reviewed to determine appropriate education?: Yes Instructions: ED Gastroenteritis Viral Prescriptions: Ondansetron Odt [Zofran] 4 mg TL Q6H PRN #10 tablet PRN Reason: Nausea / Vomiting Comments: As discussed, you have gastroenteritis of common illness. This should not last long, if you are still sick on Thursday morning would like to recheck you, sooner if worse. Urinalysis was unremarkable and your lab work showed chronic mild elevation of your liver enzymes, you did have a little bit of an elevated white count but that is nonspecific.
--- NOTE | 2022-04-04 18:22 | XRAY Report ---
PROCEDURE: Chest 2 View X-Ray INDICATIONS: dyspnea TECHNIQUE: 2 views of the chest were acquired. COMPARISON: Chest x-ray one view, 11/29/2021. FINDINGS: Surgical changes and devices: None. Lungs and pleura: No pleural effusions or pneumothorax. Bibasilar scars or atelectasis. Mediastinum: Mediastinal contours are normal. Heart size is normal. Bones and chest wall: No suspicious bony abnormalities. Soft tissues appear unremarkable. IMPRESSION: No acute cardiopulmonary disease. Reviewed by: Monique Charles MD on 04/04/2022 6:21 PM PST Approved by: Monique Charles MD on 04/04/2022 6:21 PM PST Station ID: [id number]
[2022-04-04 18:35] LABS: BASOPHILS % (AUTO) 0.2 %; EOSINOPHILS # (AUTO) 0.2 10^3/uL (0.0-0.7); EOSINOPHILS % (AUTO) 1.4 %; HCT - HEMATOCRIT 47.2 % (42.0-52.0); LYMPHOCYTES # (AUTO) 1.1 10^3/uL (1.5-3.5); LYMPHOCYTES % (AUTO) 8.9 %; MEAN CORPUSCULAR HEMOGLOBIN 30.4 pg (27.0-31.0); MEAN CORPUSCULAR HGB CONC 33.9 g/dL (32.0-36.0); MEAN CORPUSCULAR VOLUME 89.6 fL (80.0-94.0); MEAN PLATELET VOLUME 9.6 fL (7.4-11.4); MONOCYTES # (AUTO) 0.8 10^3/uL (0.0-1.0); MONOCYTES % (AUTO) 6.6 %; NEUTROPHILS # (AUTO) 10.3 10^3/uL (1.5-6.6); NEUTROPHILS % (AUTO) 82.3 %; PLT - PLATELET COUNT 451 10^3/uL (130-450); RED BLOOD COUNT 5.27 10^6/uL (4.70-6.10); RED CELL DISTRIBUTION WIDTH 12.4 % (12.0-15.0); WHITE BLOOD COUNT 12.5 x10^3/uL (4.8-10.8)
[2022-04-04 18:48] LABS: ALBUMIN 4.3 g/dL (3.2-5.5); ALBUMIN/GLOBULIN RATIO 1.1 (1.0-2.2); BILIRUBIN,TOTAL 1.6 mg/dL (0.2-1.0); CALCIUM 9.6 mg/dL (8.5-10.3); CREATININE 0.9 mg/dL (0.6-1.2); POTASSIUM 3.8 mmol/L (3.5-5.0); TOTAL PROTEIN 8.2 g/dL (6.7-8.2)
[2022-04-04] MEDS ORDERED: ONDANSETRON 4 MG/2 ML VIAL IVP STA (19:17)
[2022-04-04 19:39] LABS: GLUCOSE, URINE (UA) NEGATIVE (NEGATIVE); KETONES,URINE (UA) TRACE mg/dL (NEGATIVE); LEUKOCYTE ESTERASE, URINE NEGATIVE (NEGATIVE); NITRITE,URINE NEGATIVE (NEGATIVE); OCCULT BLOOD,URINE NEGATIVE (NEGATIVE); PROTEIN,URINE 30 mg/dL (NEGATIVE); UROBILINOGEN,URINE 0.2 (NORMAL) E.U./dL (NORMAL)
[2022-04-04 19:45] LABS: BILIRUBIN,URINE SMALL (NEGATIVE); CLARITY,URINE CLEAR (CLEAR); ICTOTEST,URINE POSITIVE
[2022-04-04 19:58] LABS: BACTERIA,URINE Rare /HPF (None Seen); MUCUS,URINE Moderate Strands; RBC,URINE 0-5 /HPF (0-5); SQUAMOUS EPITHELIAL CELL,UR NONE SEEN (<= Few); WBC,URINE 0-3 /HPF (0-3)
[2022-04-04 19:59] LABS: CASTS, URINE 0-2 Hyaline Casts /LPF
[2022-04-04] MEDS ORDERED: ONDANSETRON ODT 4 MG Prepack 2 TL STA (20:38)
[2022-04-04 20:44] VITALS: BP 176/93
== END 2022-04-04 20:55 | disposition home or self-care (01) ==
LOC: ED 17:23
DX: K52.9 Noninfective gastroenteritis and colitis, unspecified (principal); Z87.891 Personal history of nicotine dependence
CPT/HCPCS: 36415; 71046; 80053; 81001; 83690; 85025; 96374; 96375; 99283; 99284; J2765; 81003; 87086

== ENCOUNTER 2022-05-19 10:19 | Outpatient (CLI) | payer MEDICARE ==
[2022-05-19 12:57] LABS: CALCIUM 9.1 mg/dL (8.5-10.3); CREATININE 0.8 mg/dL (0.6-1.2); POTASSIUM 3.8 mmol/L (3.5-5.0)
[2022-05-19 13:00] LABS: CREATININE,URINE 130.1 mg/dL; MICROALBUMIN,URINE 6.9 mg/dL (0-300.0)
[2022-05-19 13:12] LABS: ESTIMATED AVERAGE GLUCOSE 183 mg/dL (70-100)
== END 2022-05-19 10:20 | disposition home or self-care (01) ==
LOC: LAB.N 10:19
PROVIDERS: ATTEND Family Medicine
DX: I10 Essential (primary) hypertension (principal); E11.65 Type 2 diabetes mellitus with hyperglycemia
CPT/HCPCS: 36415; 80048; 82043; 82570; 83036

== ENCOUNTER 2022-08-22 10:01 | Outpatient (CLI) | payer MEDICARE ==
[2022-08-22 17:48] LABS: CREATININE 0.8 mg/dL (0.6-1.2); POTASSIUM 4.1 mmol/L (3.5-5.0)
[2022-08-22 18:10] LABS: CREATININE,URINE 101.9 mg/dL; MICROALBUM/CREATININE RATIO,UR 68.7 ug/mg (<30.0)
[2022-08-22 21:17] LABS: ESTIMATED AVERAGE GLUCOSE 203 mg/dL (70-100); HEMOGLOBIN A1c% 8.7 % (4.27-6.07)
== END 2022-08-22 10:02 | disposition home or self-care (01) ==
LOC: LAB.N 10:01
PROVIDERS: ATTEND Family Medicine
DX: I10 Essential (primary) hypertension (principal); R80.9 Proteinuria, unspecified; K21.9 Gastro-esophageal reflux disease without esophagitis; E11.65 Type 2 diabetes mellitus with hyperglycemia; Z12.5 Encounter for screening for malignant neoplasm of prostate
CPT/HCPCS: 36415; 80048; 82043; 82570; 83036; G0103; 84153

== ENCOUNTER 2022-11-28 12:44 | Outpatient (CLI) | payer MEDICARE ==
--- NOTE | 2022-11-28 14:10 | XRAY Report ---
PROCEDURE: Ankle 3 View LT INDICATIONS: LT ANKLE PX TECHNIQUE: 3 views of the ankle were acquired. COMPARISON: None. FINDINGS: Bones: No fractures or dislocations. Ankle mortise is normally aligned. No suspicious bony lesions . Soft tissues: No tibiotalar joint effusion. Achilles tendon appears normal. IMPRESSION: No acute bony abnormality. Reviewed by: Keven Estrada on 11/28/2022 2:08 PM PDT Approved by: Keven Estrada on 11/28/2022 2:08 PM PDT Station ID: [id number]
--- NOTE | 2022-11-28 14:38 | XRAY Report ---
PROCEDURE: Foot 3 View LT INDICATIONS: LT FOOT PX TECHNIQUE: 3 views of the foot were acquired. COMPARISON: None. FINDINGS: Bones: No fractures or dislocations. No suspicious bony lesions. Plantar calcaneal enthesophyte. Soft tissues: No suspicious soft tissue calcifications or masses. IMPRESSION: No acute bony abnormality. Reviewed by: Keven Estrada on 11/28/2022 2:37 PM PDT Approved by: Keven Estrada on 11/28/2022 2:37 PM PDT Station ID: [id number]
== END 2022-11-28 12:45 | disposition home or self-care (01) ==
LOC: DI 12:44
PROVIDERS: ATTEND Nurse Practitioner
DX: M79.672 Pain in left foot (principal); M25.572 Pain in left ankle and joints of left foot

== ENCOUNTER 2022-12-04 10:23 | Outpatient (CLI) | payer MEDICARE ==
[2022-12-04 12:27] LABS: BASOPHILS % (AUTO) 0.4 %; EOSINOPHILS % (AUTO) 0.3 %; HCT - HEMATOCRIT 48.4 % (42.0-52.0); LYMPHOCYTES # (AUTO) 1.3 10^3/uL (1.5-3.5); LYMPHOCYTES % (AUTO) 14.1 %; MEAN CORPUSCULAR HEMOGLOBIN 30.5 pg (27.0-31.0); MEAN CORPUSCULAR HGB CONC 33.1 g/dL (32.0-36.0); MEAN CORPUSCULAR VOLUME 92.4 fL (80.0-94.0); MONOCYTES # (AUTO) 0.6 10^3/uL (0.0-1.0); MONOCYTES % (AUTO) 6.5 %; NEUTROPHILS # (AUTO) 7.3 10^3/uL (1.5-6.6); NEUTROPHILS % (AUTO) 77.7 %; PLT - PLATELET COUNT 369 10^3/uL (130-450); RED BLOOD COUNT 5.24 10^6/uL (4.70-6.10); RED CELL DISTRIBUTION WIDTH 12.8 % (12.0-15.0); WHITE BLOOD COUNT 9.4 x10^3/uL (4.8-10.8)
[2022-12-04 12:43] LABS: ALBUMIN 4.1 g/dL (3.2-5.5); ALBUMIN/GLOBULIN RATIO 1.1 (1.0-2.2); ALKALINE PHOSPHATASE 119 IU/L (42-121); ALT ALANINE AMINOTRANSFERASE 65 IU/L (10-60); AST ASPARTATE AMINOTRANSFERASE 35 IU/L (10-42); BILIRUBIN,TOTAL 0.8 mg/dL (0.2-1.0); BUN - BLOOD UREA NITROGEN 27 mg/dL (6-20); CALCIUM 9.4 mg/dL (8.5-10.3); CARBON DIOXIDE - CO2 27 mmol/L (21-32); CHLORIDE 101 mmol/L (101-111); CHOL/HDL RATIO 4.5 (<5.0); CHOLESTEROL 186 mg/dL; GFR - MDRD 74 (>89); GLUCOSE 281 mg/dL (74-104); HDL CHOLESTEROL 41 mg/dL; LDL CHOLESTEROL,CALCULATED 111 mg/dL; LDL/HDL RATIO 2.7 (<3.6); POTASSIUM 4.1 mmol/L (3.5-4.5); SODIUM 135 mmol/L (135-145); TOTAL PROTEIN 7.7 g/dL (6.4-8.9); TRIGLYCERIDES 171 mg/dL (48-352); VLDL CHOLESTEROL 34 mg/dL
[2022-12-04 12:59] LABS: THYROID STIMULATING HORMONE 0.93 uIU/mL (0.34-5.60)
[2022-12-04 13:18] LABS: CREATININE,URINE 130.4 mg/dL; MICROALBUM/CREATININE RATIO,UR 110.4 ug/mg (<30.0); MICROALBUMIN,URINE 14.4 mg/dL
[2022-12-04 13:41] LABS: ESTIMATED AVERAGE GLUCOSE 235 mg/dL (70-100); HEMOGLOBIN A1c% 9.8 % (4.27-6.07)
== END 2022-12-04 10:24 | disposition home or self-care (01) ==
LOC: LAB.N 10:23
PROVIDERS: ATTEND Family Medicine
DX: I10 Essential (primary) hypertension (principal); E11.65 Type 2 diabetes mellitus with hyperglycemia; J44.9 Chronic obstructive pulmonary disease, unspecified; E78.5 Hyperlipidemia, unspecified; G47.30 Sleep apnea, unspecified; Z12.5 Encounter for screening for malignant neoplasm of prostate
CPT/HCPCS: 36415; 80053; 80061; 82043; 82570; 83036; 84443; 85025; G0103; 83721; 84153

== ENCOUNTER 2023-04-06 09:06 | Outpatient (CLI) | payer MEDICARE ==
[2023-04-06 13:14] LABS: CALCIUM 9.3 mg/dL (8.5-10.3); CREATININE 0.8 mg/dL (0.6-1.3); POTASSIUM 3.9 mmol/L (3.5-4.5)
[2023-04-06 14:06] LABS: CREATININE,URINE 188.8 mg/dL; MICROALBUM/CREATININE RATIO,UR 171.1 ug/mg (<30.0); MICROALBUMIN,URINE 32.3 mg/dL
[2023-04-06 15:21] LABS: ESTIMATED AVERAGE GLUCOSE 237 mg/dL (70-100); HEMOGLOBIN A1c% 9.9 % (4.27-6.07)
== END 2023-04-06 09:07 | disposition home or self-care (01) ==
LOC: LAB.N 09:06
PROVIDERS: ATTEND Family Medicine
DX: E11.65 Type 2 diabetes mellitus with hyperglycemia (principal)
CPT/HCPCS: 36415; 80048; 82043; 82570; 83036

== ENCOUNTER 2023-07-24 10:11 | Outpatient (CLI) | payer MEDICARE ==
[2023-07-24 13:20] LABS: CALCIUM 9.3 mg/dL (8.5-10.3); CREATININE 0.8 mg/dL (0.6-1.3); POTASSIUM 3.9 mmol/L (3.5-4.5)
[2023-07-24 13:52] LABS: CREATININE,URINE 77.7 mg/dL; MICROALBUM/CREATININE RATIO,UR 74.6 ug/mg (<30.0); MICROALBUMIN,URINE 5.8 mg/dL
[2023-07-24 14:22] LABS: ESTIMATED AVERAGE GLUCOSE 174 mg/dL (70-100); HEMOGLOBIN A1c% 7.7 % (4.27-6.07)
== END 2023-07-24 10:12 | disposition home or self-care (01) ==
LOC: LAB.N 10:11
PROVIDERS: ATTEND Family Medicine
DX: E11.65 Type 2 diabetes mellitus with hyperglycemia (principal); R80.9 Proteinuria, unspecified
CPT/HCPCS: 36415; 80048; 82043; 82570; 83036

== ENCOUNTER 2024-01-08 09:25 | Outpatient (CLI) | payer MEDICARE ==
[2024-01-08 12:15] LABS: BASOPHILS # (AUTO) 0.1 10^3/uL (0.0-0.1); BASOPHILS % (AUTO) 0.7 %; EOSINOPHILS # (AUTO) 0.3 10^3/uL (0.0-0.7); EOSINOPHILS % (AUTO) 4.1 %; HCT - HEMATOCRIT 47.2 % (42.0-52.0); HGB - HEMOGLOBIN 15.4 g/dL (14.0-18.0); LYMPHOCYTES # (AUTO) 1.6 10^3/uL (1.5-3.5); LYMPHOCYTES % (AUTO) 21.5 %; MEAN CORPUSCULAR HEMOGLOBIN 30.7 pg (27.0-31.0); MEAN CORPUSCULAR HGB CONC 32.6 g/dL (32.0-36.0); MEAN PLATELET VOLUME 10.4 fL (7.4-11.4); MONOCYTES # (AUTO) 0.7 10^3/uL (0.0-1.0); MONOCYTES % (AUTO) 9.6 %; NEUTROPHILS # (AUTO) 4.8 10^3/uL (1.5-6.6); NEUTROPHILS % (AUTO) 63.7 %; PLT - PLATELET COUNT 287 10^3/uL (130-450); RED BLOOD COUNT 5.02 10^6/uL (4.70-6.10); RED CELL DISTRIBUTION WIDTH 12.6 % (12.0-15.0); WHITE BLOOD COUNT 7.6 x10^3/uL (4.8-10.8)
[2024-01-08 12:36] LABS: CREATININE,URINE 49.1 mg/dL; MICROALBUM/CREATININE RATIO,UR 97.8 ug/mg (<30.0); MICROALBUMIN,URINE 4.8 mg/dL
[2024-01-08 12:39] LABS: ALBUMIN 3.9 g/dL (3.2-5.5); ALBUMIN/GLOBULIN RATIO 1.2 (1.0-2.2); ALKALINE PHOSPHATASE 105 IU/L (42-121); ALT ALANINE AMINOTRANSFERASE 32 IU/L (10-60); AST ASPARTATE AMINOTRANSFERASE 22 IU/L (10-42); BILIRUBIN,TOTAL 0.7 mg/dL (0.2-1.0); BUN - BLOOD UREA NITROGEN 15 mg/dL (6-20); CALCIUM 9.1 mg/dL (8.5-10.3); CARBON DIOXIDE - CO2 26 mmol/L (21-32); CHLORIDE 104 mmol/L (101-111); CHOL/HDL RATIO 3.9 (<5.0); CHOLESTEROL 165 mg/dL; CREATININE 0.7 mg/dL (0.6-1.3); GFR - MDRD 111 (>89); GLUCOSE 162 mg/dL (74-104); HDL CHOLESTEROL 42 mg/dL; LDL CHOLESTEROL,CALCULATED 92 mg/dL; LDL/HDL RATIO 2.2 (<3.6); POTASSIUM 3.8 mmol/L (3.5-4.5); SODIUM 138 mmol/L (135-145); TOTAL PROTEIN 7.1 g/dL (6.4-8.9); TRIGLYCERIDES 154 mg/dL; VLDL CHOLESTEROL 31 mg/dL
[2024-01-08 12:41] LABS: ESTIMATED AVERAGE GLUCOSE 171 mg/dL (70-100); HEMOGLOBIN A1c% 7.6 % (4.27-6.07)
[2024-01-08 12:46] LABS: THYROID STIMULATING HORMONE 1.26 uIU/mL (0.34-5.60)
== END 2024-01-08 09:26 | disposition home or self-care (01) ==
LOC: LAB.N 09:25
PROVIDERS: ATTEND Family Medicine
DX: I10 Essential (primary) hypertension (principal); Z12.5 Encounter for screening for malignant neoplasm of prostate; R80.9 Proteinuria, unspecified; E11.65 Type 2 diabetes mellitus with hyperglycemia; K63.5 Polyp of colon; J44.9 Chronic obstructive pulmonary disease, unspecified; E78.5 Hyperlipidemia, unspecified; F41.9 Anxiety disorder, unspecified; F32.A Depression, unspecified
CPT/HCPCS: 36415; 80053; 80061; 82043; 82570; 83036; 84443; 85025; G0103; 83721; 84153